=== PATIENT | female | born 1940 | race Caucasian/White ===

== ENCOUNTER 2016-10-10 20:59 | Inpatient (IN) | payer MEDICARE, OTHER ==
[~2016-10-10] VITALS: Ht 40.6 cm; Wt 90.6 kg
--- NOTE | 2016-10-11 19:36 | ER ---
ADMIT: 10/10/2016 RM/LOC: 530 [facility] MR#: [id number] [address] [facility] [place], [place] [address] JAMES TELLEZ [address] [place] [address] Emergency Room Report SEX: F AGE: 76 : 1940 DATE: 10/10/2016 CHIEF COMPLAINT: Fatigue, cough. 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 Marx with chest x-ray consistent with pneumonia and elevated white count. Transferred by Dr. Marx to [place] after discussing case with Dr. Juan prior to shift change tonight. PAST MEDICAL HISTORY: ALLERGIES: LEVAQUIN. MEDICATIONS: Please see nurse's MAR. 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 OPERATIONS: Cholecystectomy, total rhinectomy with multiple skin grafts and facial reconstruction, tonsillectomy, cataract with intraocular lens implant. SOCIAL HISTORY: , retired. Nonsmoker, nondrinker. No illicit drugs. FAMILY HISTORY: Negative per chart review. REVIEW OF SYSTEMS: A 12-point review of systems is negative for all other systems, illnesses, or operations except as outlined above. PHYSICAL EXAMINATION: VITAL SIGNS: Temp 98.6, pulse 111, respirations 14, BP 133/64, SaO2 96%. GENERAL: Nontoxic, non-diaphoretic without jaundice or icterus. HEENT: Normocephalic. Total rhinectomy noted. NECK: Supple without lymphadenopathy or thyromegaly. CHEST: Clear. Breath sounds equal. HEART: Tachycardic. Regular without murmur, gallop, or edema. ABDOMEN: Soft, obese, nontender, and nondistended without mass or megaly. Bowel sounds hypoactive. EXTREMITIES: Diffuse tender nodular lesions, hands, elbow, left lateral neck. No evidence of Homans sign or synovitis. NEURO: EOMI. PERRLA. No evidence of drift, dysarthria, or ataxia. Gait: Not assessed. Mental status: Alert, oriented, and cooperative without delusions, hallucinations, or abnormal thought content. ADMIT: 10/10/2016 RM/LOC: 530 [facility] MR#: [id number] [address] [facility] [address] [place] [id number] JAMES TELLEZ [address] [place] [address] Emergency Room Report SEX: F AGE: 76 : 1940 MEDICAL DECISION MAKING: Chest x-ray showed ill-defined left lower lobe infiltrate versus atelectasis versus effusion. CTA chest shows no evidence of pulmonary emboli. Obstructive pneumonia with possible abscess and metastatic mediastinal disease noted. EKG showed sinus tachycardia with low voltage. No prior tracing. WBC 17.6 with left shift. Hemoglobin 10.4, platelets 505, lactic 1.2, BN peptide 543, CRP 23.6, procalcitonin 0.1, D-dimer 3.16, INR of 1.11. Blood cultures pending. The patient covered with vancomycin and Zosyn. Discussed findings and disposition with Dr. Gomes, who agreed to accept. Notified Dr. Engle of consult. We will discuss with Dr. Gomes and Interventional Radiology best method for obtaining tissue. DIAGNOSES: 1. Left lung obstructive pneumonia, possible empyema versus metastatic disease chest. 2. Squamous and basal cell carcinoma of the face, status post total rhinectomy, radiation, and chemotherapy. 3. Ill-defined bleeding disorder. RECOMMENDATION: Admit inpatient telemetry for Dr. Booker Gomes and Dr. Engle. ADMISSION/DISCHARGE CONDITION: Stable. CODE STATUS: The patient is a full code. Ciro Borrego MD/ jacinto JOB #: [id number] CC: Booker Gomes MD, Attending Physician Booker Gomes MD, Family Physician MD Rambo Elam MD Jay C Anderson, MD
--- NOTE | 2016-10-12 10:02 | CO ---
ADMIT: 10/10/2016 RM/LOC: 530 [facility] MR#: [id number] [address] [facility] [place], [place] [address] JAMES TELLZE [address] [place] [address] Consultation SEX: F AGE: 76 : 1940 DATE OF CONSULTATION: 10/11/2016 ATTENDING PHYSICIAN: Booker Gomes CONSULTING PHYSICIAN: Oscar Padron MD REASON FOR CONSULTATION: History of bleeding disorder. 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 She was admitted for recurring bouts of pneumonia with concern for a postobstructive pneumonia secondary to a large left lower lobe mass seen on CT scan. Additional mass was also noted in the left upper lobe. The patient also noted, in the last few days, some occurrence of painful red lumps on her extremities around the dorsum of her hands and on the left side of her neck. She endorses shortness of breath, back pain, decreased appetite, and mild weight loss. No significant cough or fevers associated with this questionable pneumonia. No significant new changes in medications were added. The patient's bleeding history is rather interesting. She previously was seeing Dr. Cory Payan in [place] over 10 years ago. To her knowledge, he never gave her an official diagnosis but was quite interested in her case. During the time of her rhinectomy, he was very concerned and gave her several units of transfuse platelets before and after the procedure. She is unsure if she has any diagnosed von Willebrand factor deficiency. She has only a personal history of bleeding and no significant family history. She has two daughters and a son, and she had a brother, and her parents never had any bleeding problems. Both of her parents are from [place]. She has bleeding after any sort of poke or cut from a medical procedure or accidental. She has a history of gum bleeding quite easily following any sort of dental work to the point that she avoids going to the dentist these days. She had two nearly life threatening hemorrhage events earlier on and did have times of very heavy periods. She also reports easy bruising. She denies any joint bleeding or any delayed failure of hemostasis. Her scars heal normally and she does not have excessive joint flexibility. She does avoid taking all aspirin and NSAID products, and relies on Tylenol or hydrocodone for pain relief. PAST MEDICAL HISTORY: 1. History of pancreatitis. 2. History of spinal stenosis. 3. History of anemia of chronic disease. 4. History of primary hemostasis deficiency. 5. History of combined basal/squamous cell carcinoma of the nose, status post rhinectomy and radiation. 6. History of cholecystectomy. FAMILY HISTORY: As above in HPI, no significant family history of bleeding. Father does have a history of lung cancer and type 2 diabetes. ADMIT: 10/10/2016 RM/LOC: 530 [facility] MR#: [id number] [address] [facility] [address] [place] [phone] JAMES TELLEZ [facility] [address] [place] [address] Consultation SEX: F AGE: 76 : 1940 SOCIAL HISTORY: The patient does not smoke or drink. She lives near [place]. She has three children and is . HOME MEDICATIONS: 1. Gemfibrozil. 2. Magnesium oxide. 3. Calcium. 4. Aldactone. ALLERGIES: LEVAQUIN. REVIEW OF SYSTEMS: A complete review of systems was conducted and found to be negative except for what was mentioned above in the HPI. PHYSICAL EXAMINATION: VITAL SIGNS: Temp 100.8, pulse 100, respiratory rate 14, blood pressure 106/50, saturating 92% on room air. GENERAL: This is a pleasant, alert, and oriented adult female, who is a good historian. HEENT: Pupils are equal, round, and reactive. Sclerae are nonicteric. She has a bandage over her rhinectomy site, no prosthesis in place. Mouth is free from oral lesions. No bleeding or hypertrophy of the gums. SKIN: Left-sided neck, left forearm, and dorsum of hands bilaterally shows slightly raised, red, tender papules. CARDIAC: With 2/6 systolic murmur. Regular rate and rhythm. LUNGS: Clear to auscultation bilaterally with decreased respiratory sounds in the left lower lobe. Normal respiratory effort. ABDOMEN: Soft, nontender to palpation. I do not appreciate a big spleen. No hepatomegaly. Bowel sounds are positive. EXTREMITIES: No clubbing, cyanosis, or edema. NEUROLOGIC: Cranial nerves II through XII are grossly intact. PSYCH: Mood is euthymic. Affect is full and mood congruent. LABORATORY AND RADIOLOGY: Outside CT scan was visualized with significant large left lower lobe mass and much smaller left upper lobe mass detected. WBC 17.6, hemoglobin 10.4, platelets 505 with a mean platelet volume 8.4, lower limit of normal is 9.4. INR is normal at 1.11. PTT is slightly prolonged at 32.6 (upper limit of normal 31.3). IMPRESSION AND RECOMMENDATIONS: A 76-year-old female with lung mass and primary hemostasis abnormality. 1. Lung mass. The patient's mass is concerning for a lung cancer, a biopsy is necessary in order to facilitate treatment. It appears that the best approach would be a CT-guided IR biopsy of whichever lung mass is most amenable. There is significant risk for bleeding given her history, see below. 2. Primary hemostasis disorder. The patient's history and normal coags are most compatible with a primary hemostasis disorder, likely related to a ADMIT: 10/10/2016 RM/LOC: 530 [facility] MR#: [id number] [address] [facility] [address] [place], [place] [address] ROSALINDAJAMES [address] [place] [address] Consultation SEX: F AGE: 76 : 1940 rare inherited platelet deficiency and/or a von Willebrand factor deficiency of some type. I will attempt to obtain one of the medical records from Dr. Cory Payan as details in these records may prove to be invaluable. Unfortunately, my ability to accurately perform platelet function analysis here in [place] is severely limited. Tests such as the PFA-100 and traditional platelet aggregation studies need to be fresh specimens, some of which performed within 45-60 minutes. The best way to test these would be to have the patient physically located in [place] for specimen handling and the most trustworthy results. As stated, the coags are essentially normal and thus, I have low suspicion to suspect a factor deficiency. Her history is not compatible with Factor XIII deficiency. If there are enough details in Dr. Payan's labs and we can be assured of no significant von Willebrand deficiency, we may be able to proceed with pre- procedure platelet transfusions here in [place]. If not, I would recommend that the patient be transferred to [place] for better laboratory assessment of her bleeding problem. TOTAL TIME SPENT: 90 minutes. Thank you for this interesting consultation. Please call with any further questions. I will continue to follow along. Oscar Padron MD/ jacinto JOB #: [id number] CC: Booker Gomes, Attending Physician Booker Gomes, Family Physician
[2016-10-15] MEDS ORDERED: HYDROCODON-ACE1 EAC4 PO (06:28)
[2016-10-15] MEDS ORDERED: SURFAK DPS240 MG PO (06:28)
[2016-10-15] MEDS ORDERED: TYLENOL DPS325 MG PO (06:28)
[2016-10-15] MEDS ORDERED: MAALOX DPS30 ML PO (06:28)
[2016-10-15] MEDS ORDERED: ZOSYN 3.3753.375 GM IV (06:29)
[2016-10-15] MEDS ORDERED: VANCOCIN-DPS500 MG IV (06:31)
--- NOTE | 2016-10-16 07:13 | CO ---
ADMIT: 10/10/2016 RM/LOC: 530 [facility] MR#: [id number] [address] [facility] [place], [place] [address] ANGELLA TELLEZ [address] [place] [address] Consultation SEX: F AGE: 76 : 1940 DATE OF CONSULTATION: 10/11/2016 ATTENDING PHYSICIAN: Booker Gomes CONSULTING PHYSICIAN: Raymond Engle MD ADDENDUM: I have seen Angella independently, examined her, reviewed her chart, radiographic studies, laboratory studies, and discussed her with JULIAN Cole. I have reviewed his note in its entirety and I am in agreement with his assessment and plan. Given her complex nature of prior surgical complications from bleeding diathesis, I have recommended that we initially try Interventional Radiology percutaneous catheter placement for drainage of the fluid in the pleural space. Given the duration of her symptoms since July, this may or may not be successful in alleviating the fluid and allowing for adequate aeration of the left lower lobe. I did discuss with her if that were to fail from adequate treatment with IV antibiotic therapy, she may ultimately require video-assisted thoracoscopic surgery versus open thoracotomy. 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 I discussed this again with Angella and her family, and they agreed to proceed as described. Raymond Engle MD/ jacinto JOB #: [id number] CC: Booker Gomes, Attending Physician Booker Gomes, Family Physician
--- NOTE | 2016-10-17 12:50 | DS ---
ADMIT: 10/10/2016 RM/LOC: 530 [facility] MR#: [id number] [address] [place] [phone] JAMES TELLEZ [address] [place] [address] Discharge Summary SEX: F AGE: 76 : 1940 ADMISSION DATE: 10/10/2016 DISCHARGE DATE: 10/14/2016 DISCHARGE DIAGNOSES: 1. Left lung masses consistent with malignancy. 2. Left pleural effusion. 3. Left postobstructive pneumonia. 4. Anemia. 5. 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 6. History of bleeding disorder, uncharacterized, likely platelet abnormality. CONSULTATIONS: 1. General Surgery. 2. Hematology. REASON FOR ADMISSION: The patient is a very pleasant, 76-year-old female, who presented to [facility] Emergency Room as a transfer from [place] with respiratory complaints and an abnormal chest x-ray. The patient notes she had just not been feeling well ever since a "pneumonia" in July, just never seemed to get over it. She was admitted for further evaluation and treatment. For complete details, please see H and P dictated on the day of admission. HOSPITAL COURSE: At the time of admission, the patient had undergone CT scanning of the chest that did show masses on the left side of the chest, as well as what looked like a postobstructive pneumonia. She was started on antibiotics for the postobstructive pneumonia, and in visiting with the patient, did have plans to set up for Interventional Radiology biopsies of these masses. 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 The patient felt better after a couple of courses of antibiotics. We did ask Hematology to see her, and they did agree with transfer to [facility] for further evaluation, CT guided biopsy. I called [facility] and made plans for transfer, and she was transferred on 10/14. Her discharge medications are per discharge medication sheet. Her diet and activity will be as tolerated. She will have follow up with her doctors in [place] after discharge from [facility]. Booker Gomes MD/ juliana JOB #: [id number] CC: Booker Gomes MD, Attending Physician Booker Gomes MD, Family Physician Rambo Marx MD
--- NOTE | 2016-10-17 12:50 | HP ---
ADMIT: 10/10/2016 RM/LOC: 530 [facility] MR#: [id number] [address] [facility] [place], [place] [address] JAMES TELLEZ [address] [place] [address] History and Physical SEX: F AGE: 76 : 1940 DATE OF SERVICE: CHIEF COMPLAINT: Shortness of breath. HISTORY OF PRESENT ILLNESS: The patient is a very pleasant 76-year-old female, who was transferred down from [place] as a City-call patient. She has history of multicentric squamous cell/basal cell carcinoma of the nose, status post radiation and an intensive surgical treatment, who presented in clinic and then eventually in their ER in [place] with complaints of just shortness of breath and not feeling well. Said she has had a pneumonia in July and August of this year. Along with shortness of breath, she noted that she had just kind of this right-sided back pain that travelled around to her left. She has noted decreased appetite and a little bit of weight loss. She denies any bowel or bladder complaints. She denies any really productive cough at this time. Denies any issues with bowel or bladder or urinary symptoms. Has not really noticed fevers at all either, but underwent imaging that showed questionable right-sided pneumonia and she was transferred down here for further evaluation and treatment. This morning, the patient notes her breathing and her shortness of breath both felt better. Recently, she has also had some trouble with some skin rashes. She has noted some bright red painful bumps both on her dorsum of her right hand and her left forearm as well as some spots on the back of her head and neck, she is not quite sure what those can be. No new medication changes have been noted and as mentioned, she was admitted for further evaluation and treatment. PAST MEDICAL HISTORY: In visiting with the patient and on review of the chart includes: 1. Spontaneous vaginal delivery x2. 2. History of pancreatitis. 3. History of spinal stenosis. 4. History of anemia of chronic disease. 5. History of a bleeding diathesis seen previously by Dr. Cory Payan, [facility] Hematology, with the patient notes significant bleeding both with child and any surgical procedures. 6. As mentioned, history of basal cell/squamous cell carcinoma of the nose, status post operative intervention with rhinectomy and postsurgical radiation. 7. Status post cholecystectomy. FAMILY HISTORY: Father with lung cancer and type 2 diabetes. SOCIAL HISTORY: She is a nonsmoker, non drinker. Currently living in [place], [place]. She is , with children. HOME MEDICATIONS: 1. Gemfibrozil. 2. Magnesium oxide. 3. Calcium. 4. Aldactone. ADMIT: 10/10/2016 RM/LOC: 530 [facility] MR#: [id number] [address] [facility] [address] [place] [phone] JAMES TELLEZ [facility] [address] [place], [place] [id number] History and Physical SEX: F AGE: 76 : 1940 ALLERGIES: LEVAQUIN. REVIEW OF SYSTEMS: As noted above. All other systems are reviewed and negative. PHYSICAL EXAMINATION: VITAL SIGNS: 100.8, 100, 14, 106/50, 90% on room air. GENERAL: This is a female, who appears in stated age, in no apparent distress. She is alert and oriented x3. Cooperative with examiner. HEENT: Noted rhinectomy, nasal cavity defect is covered by bandages at this time. She is otherwise normocephalic and atraumatic. Mucous membranes are little dry. NECK: Supple. LUNGS: She is a little diminished on the left side but otherwise, I do not hear any wheezes, rhonchi, or rales. HEART: Regular. ABDOMEN: Soft, nontender, nondistended. Positive bowel sounds. EXTREMITIES: She has no edema. She has good pulses. NEURO: Cranial nerves are intact. No focal deficits are noted. SKIN: She has, on her left ventral forearm, approximately 2 cm, round, slightly raised, mildly erythematous subcutaneous nodule. She has another spot like that on the dorsum of her right hand and then one on the kind of the right parieto-occipital area. As mentioned, all slightly tender to the touch and all about the same size. LABORATORY AND IMAGING DATA: Lab work showed a hemoglobin 10.4, white count 17.6. Sodium 138, potassium 4.4, BUN is 15, creatinine 0.9, bicarb was 25, Mag was 2. Troponin was 0.015. CRP was 23.6. LFTs, AST, ALT, alkaline phosphatase, and bilirubin all within normal limits. Procalcitonin was 0.1. Lactic acid was 1.2. CT scan of the chest showed no PE, but there is a left- sided pulmonary mass, question postobstructive consolidation with noted mediastinal hilar lymphadenopathy. ASSESSMENT AND PLAN: 1. Chronic dyspnea. 2. Left-sided pulmonary mass with likely postobstructive pneumonia. 3. Small left-sided pleural effusion. 4. Suspicious subcutaneous nodules. 5. Anemia. 6. Leukocytosis. 7. History of facial and nasal squamous/basal cell carcinoma, status post intervention and radiation treatment. 8. History of significant bleeding diathesis involving surgical operations and child . At this point, I really do believe this is probably a left-sided malignancy with postobstructive pneumonia and probably a ADMIT: 10/10/2016 RM/LOC: 530 [facility] MR#: [id number] [address] [facility] [address] [place], [place] [address] ROSALINDAJAMES [address] [place] [address] History and Physical SEX: F AGE: 76 : 1940 malignant pleural effusion. Right now, certainly with her history, it could be a metastatic basilar or squamous cell or primary lung. With these subcutaneous nodules, we would wonder if this could possibly be a metastatic focus of cancer or possibly erythema nodosum that can be associated with certain malignancies. At this time, we will treat her postobstructive pneumonia. She is on room air right now. We need tissue at some point with her very significant bleeding diathesis. We will grab coags on her and have Hematology see her. Certainly, we need to make sure this all gets settled down before she undergoes either biopsy of these skin lesions or especially with CT-guided biopsy coming up. This was discussed with the patient and her daughter at length, and we will follow along closely. Booker Gomes MD/ jacinto JOB #: [id number] CC: Booker Gomes, Attending Physician Booker Gomes, Family Physician
--- NOTE | 2016-10-22 10:10 | CO ---
ADMIT: 10/10/2016 RM/LOC: 530 [facility] MR#: [id number] [address] [facility] [place], [place] [phone] ANGELLA TELLEZ [address] [place] [address] Consultation SEX: F AGE: 76 : 1940 DATE OF CONSULTATION: 10/11/2016 ATTENDING PHYSICIAN: Booker Gomes CONSULTING PHYSICIAN: Raymond Engle MD REASON FOR CONSULTATION: Lethargy. HISTORY OF PRESENT ILLNESS: Angella is a very pleasant 76-year-old female, who states that she was diagnosed with pneumonia back at the end of July, beginning of August of this year. Since then, she has not been able to improve. She has had progressive lethargy and just overall has not felt good. Because of these symptoms, she decided to seek medical treatment in the clinic in [place] where plain films revealed suggestive findings of persistent pneumonia in her lungs, so then, she was transferred to our facility for management. Though there is not official read CTA of her chest did reveal a large collection in her left lower lung from CT concerning for empyema. Currently, the patient is nauseous, but denies any cough, sputum, or hemoptysis. She did have a run of pleurisy several weeks back but this has resolved. She further denies any fever, chills, or night sweats. 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 Because of this, she tends to run thin and has issues with any surgical procedures. She has had surgery done on her nose that required apparently 6 units of platelets prior and 6 units of platelets afterwards and she did just fine. She did have her gallbladder taken out where at that time blood was "spurting" from the incisions made from that procedure. 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 PAST SURGICAL HISTORY: 1. Numerous radiation treatments for acne. 2. Laparoscopic cholecystectomy. ALLERGIES: THE PATIENT IS ALLERGIC TO LEVAQUIN AND ESTROGEN. MEDICATIONS: Well documented in chart. FAMILY HISTORY: Noncontributory. SOCIAL HISTORY: The patient denies any tobacco, alcohol, or illicit drug use. REVIEW OF SYSTEMS: CONSTITUTIONAL: The patient denies any fever, chills, or night sweats. The rest of comprehensive 10-point review of systems was performed and all other systems are negative. PHYSICAL EXAMINATION: GENERAL: The patient is in no acute distress. She is alert and oriented. HEENT: Head is normocephalic and atraumatic. EOMs are intact. Conjunctivae ADMIT: 10/10/2016 RM/LOC: 530 [facility] MR#: [id number] 26[address] [facility] [address] [place] [id number] ANGELLA TELLEZ [facility] [address] [place] [id number] Consultation SEX: F AGE: 76 : 1940 free of icterus, erythema, or pallor. Pinnae, free of deformities. Dressing placed over nose, looks like nose has been resected. NECK: Supple. No tracheal deviation. LUNGS: Normal respiratory effort. Decreased breath sounds and rales in left lower lung field. HEART: Regular rate and rhythm. Distal pulses intact. No murmurs noted. ABDOMEN: Soft, nondistended, and nontender. NEURO: Grossly intact. SKIN: Numerous raised erythematous nodules on the patient's upper extremities. DIAGNOSTIC IMAGING: Please see HPI. ASSESSMENT: Radiographic evidence of a fluid collection in left lower lung concerning for pneumonia and empyema. PLAN: As of right now, we will avoid surgery with the patient given the history of this particular bleeding disorder. In the meantime, we will see if IR can get in a pleural drain catheter to clear up this fluid collection. I discussed this with the patient which she is in agreement of this plan, had all her questions answered and would like to proceed. JULIAN Cole / Raymond Engle MD / jacinto JOB #: [id number] CC: Booker Gomes, Attending Physician Booker Gomes, Family Physician
[2016-11-26] MEDS ORDERED: NILSTAT SUSP DPS PO (11:10)
[2016-11-26] MEDS ORDERED: MAG-OX400 MG PO (11:10)
[2016-11-26] MEDS ORDERED: DILAUDID2 MG PO ×2 (11:10→11:12)
[2016-11-26] MEDS ORDERED: CORDARONE DPS200 MG PO (11:10)
[2016-11-26] MEDS ORDERED: CARDIZEM CD DP120 MG PO (11:10)
[2016-11-26] MEDS ORDERED: AMBIEN DPS5 MG PO (11:11)
[2016-11-26] MEDS ORDERED: BENADRYL25 MG PO (11:11)
[2016-11-26] MEDS ORDERED: REGLAN DPS5 MG PO (11:11)
[2016-11-26] MEDS ORDERED: COLACE-DPS100 MG PO (11:11)
[2016-11-26] MEDS ORDERED: SLOW-MAG71.5 MG PO (11:11)
[2016-11-26] MEDS ORDERED: MAALOX DPS30 ML PO (11:12)
[2016-11-26] MEDS ORDERED: MOI-STIR120 ML PO (11:12)
[2016-11-26] MEDS ORDERED: ROXANOL 20MG20 MG/ML PO (11:12)
[2016-11-26] MEDS ORDERED: LASIX DPS80 MG PO (11:13)
[2016-11-26] MEDS ORDERED: SENOKOT S1 TAB PO (11:13)
[2016-11-26] MEDS ORDERED: DIFLUCAN DPS150 MG PO (11:13)
[2016-11-26] MEDS ORDERED: DURAGESIC DPS100 MCG TD (11:14)
== END 2016-10-14 10:58 | disposition short-term general hospital (02) | DRG 180 ==
LOC: ER 20:59 → 5MS 23:00
PROVIDERS: ADMIT Internal Medicine
DX: C34.92 Malignant neoplasm of unspecified part of left bronchus or lung (principal); J18.9 Pneumonia, unspecified organism; D68.9 Coagulation defect, unspecified; D63.8 Anemia in other chronic diseases classified elsewhere; I10 Essential (primary) hypertension; E78.5 Hyperlipidemia, unspecified; R91.8 Other nonspecific abnormal finding of lung field; M48.00 Spinal stenosis, site unspecified; R22.9 Localized swelling, mass and lump, unspecified; D72.829 Elevated white blood cell count, unspecified; Z85.89 Personal history of malignant neoplasm of other organs and systems

== ENCOUNTER 2016-10-27 11:46 | Inpatient (IN) | payer MEDICARE, OTHER ==
[~2016-10-27] VITALS: Ht 154.9 cm; Wt 87.0 kg
--- NOTE | ~2016-10-27 | ECH ---
Transthoracic Echocardiography Report (TTE) Demographics Patient Name JAMES TELLEZ Date of Study 10/28/2016 Patient Number [id number] Visit Number [id number] Date of 1940 Room Number 313 Accession Number [id number] Gender Female Age 76 year(s) Referring Elvia Foreman MD Personnel Associate Carlie Melendez Physician Parrish Landa RDCS, MD Physician Interpreting Vera Jimenez Network Development Coordinator Physician MD Supervising Ordering Physician Parrish Landa MD/SAMP Nurse Stress Vulcanizing Press Operator Conclusions Summary Technically adequate exam. The estimated left ventricular ejection fraction is 60%. There is trivial aortic regurgitation by color Doppler. Mild tricuspid regurgitation by color Doppler. There is mild pulmonary hypertension. The pulmonary pressure (RVSP) is 40 mmHg. Small circumferential pericardial effusion. Procedure Type of Study TTE procedure:Echo Complete SF. Procedure Date Date: 10/28/2016 Start: 10:50 AM Technical Quality: Adequate visualization Indications:Atrial fibrillation and Hypertension. Appropriate Use Criteria: 9 Height: 61 inches Weight: 203 pounds BSA: 1.9 m Rhythm: Within normal limits HR: 78 bpm BP: 95/44 mmHg M-Mode/2D Measurements LV Diastolic Dimension: 3.98 cm LV Systolic Dimension: 2.94 cm LV Septum Diastolic: 0.73 cm LV PW Diastolic: 0.72 cm AO Root Dimension: 2.93 cm Cardiac Output: 4.42 l/min LA Dimension: 2.88 cm Cardiac Index: 2.33 l/min*m RV Diastolic Dimension: 2.65 cm LA volume index: 16 ml/m Post Pericard Effusion: 0.3 cm LVOT: 1.94 cm LVOT VTI: 19.19 cm RV Base: 2.8 cm LV Stroke volume: 56.7 ml RV Mid: 1.9 cm LV Stroke volume index: 29.84 ml/m TAPSE: 1.8 cm TDI-S': 12 cm/s Doppler Measurements AV Peak Velocity: 2 m/s MV Peak E-Wave: 0.99 m/s AV Peak Gradient: 16 mmHg MV Peak A-Wave: 0.71 m/s AV Mean Gradient: 9.46 mmHg MV E/A Ratio: 1.39 LVOT Peak Velocity: 1.1 m/s MV P1/2t: 49.3 msec AV Area (Continuity):1.65 cm AV P1/2t: 446.2 msec MV Deceleration Time: 165.8 msec TR Velocity:3.06 m/s MV Area (PHT): 4.47 cm TR Gradient:37.45 mmHg PV Peak Velocity: 0.91 m/s Estimated RAP:3 mmHg PV Peak Gradient: 3.31 mmHg Estimated RVSP: 40 mmHg Estimated PASP: 40.45 mmHg E' Septal Velocity: 0.1 m/s A' Septal Velocity: 0.12 m/s E' Lateral Velocity: 0.12 m/s A' Lateral Velocity: 0.15 m/s RA Area: 10.35 cm Findings Left Ventricle Normal left ventricle size and function. Diastolic assessment reveals normal relaxation. Right Ventricle Normal right ventricle structure and function. Left Atrium Normal left atrial size. Right Atrium Normal right atrial size. Mitral Valve Normal mitral valve structure and function. No mitral regurgitation by color Doppler. Aortic Valve The aortic valve is mildly sclerotic. There is trivial aortic regurgitation by color Doppler. Tricuspid Valve Normal tricuspid valve structure and function. Mild tricuspid regurgitation by color Doppler. There is mild pulmonary hypertension. The pulmonary pressure (RVSP) is 40 mmHg. Pulmonic Valve The pulmonic valve is not well visualized. Pericardial Effusion Trivial circumferential pericardial effusion. Miscellaneous Visualized portions of the aortic root and ascending aorta appear normal in size. Pleural Effusion No evidence of pleural effusion. Contractility Score LV regional wall motion:(0-Non visualized 1-Normal 2-Hypokinesis 3-Akinesis 4-Dyskinesis 5-Aneurysm) Signature
--- NOTE | ~2016-10-27 | WND ---
ADMIT: 10/27/2016 RM/LOC: 406 [facility] MR#: [id number] 26[address] [facility] [address] [place] [phone] JAMES TELLEZ [address] [place] [address] Wound Care Clinic SEX: F AGE: 76 : 1940 DATE OF VISIT: 11/13/2016 TIME IN: 1310 hours. TIME OUT: 1320 hours. REASON FOR VISIT: Evaluation and treatment of right buttock ulcerations. Request for wound care from Dr. Senior. HISTORY OF PRESENT ILLNESS: This is a 76-year-old female, who was admitted to [facility] on 10/27/2016 with a history of basal and squamous carcinoma of the nose, status post radiation and surgical treatment. She also has a diagnosis of non small-cell lung cancer, anemia, and pancreatitis. She has a bleeding diathesis, paroxysmal atrial fibrillation, and spinal stenosis. She was seen by Wound Care for evaluation of her buttocks. Initially, she had perirectal irritation that has since cleared, but she did develop a pressure ulceration on her right buttock that is being treated with low air loss Sensi-Care and position changes. Wound Care returns today for further evaluations. REVIEW OF SYSTEMS: She is examined in her hospital room where she is initially sleeping. Her daughter is at the bedside and provides review of systems. She states her mother's nausea has been under control with current medications. Her mother has a very decreased appetite, only taking sips and not able to tolerate her protein drinks. She has had some abdominal discomfort. She does have pain in her back related to her spinal stenosis and patient awakens and states she also has pain in her bottom. No recent fever, chills, chest pain, or cough. PHYSICAL EXAMINATION: VITAL SIGNS: Temperature 97.5, 64, 16, blood pressure 101/47, O2 sats with oxygen 96%. Focused exam to sacral, coccyx, buttocks area shows that the perirectal area is now healed. On her right buttock is an ulceration that today has a yellowish base and measures 2 x 1.2 cm, depth of 0.2 cm. Adjacent to this is this new ulceration that measures 0.3 x 1.2 with a depth of 0.2 cm. This has a red moist wound base. There is no surrounding induration. Blanchable erythema noted. ADMIT: 10/27/2016 RM/LOC: 406 [facility] MR#: [id number] [address] [phone] JAMES TELLEZ [address] [place] [address] Wound Care Clinic SEX: F AGE: 76 : 1940 ASSESSMENT: 1. Stage III pressure ulceration, right buttock. 2. Stage II pressure ulceration, right buttock. TREATMENT PLAN: We will continue with Sensi-Care and pressure relief. She is on a low air loss mattress. She has a risk for future breakdown because of her complicated diagnosis and poor oral intake. Requested that staff be sure to turn her every 2 hours especially at night with a pillow under hips with a 30-degree tilt to offload pressure on her buttock. Thank you for this referral and Wound will continue to follow while she is inpatient. Any Christensen APRN/ jacinto JOB #: [id number] CC: Marsha Senior, Attending Physician Rambo Marx, Family Physician
--- NOTE | ~2016-10-27 | WND ---
ADMIT: 10/27/2016 RM/LOC: 406 [facility] MR#: [id number] 26[address] [facility] [address] [place] [phone] JAMES TELLEZ [address] [place] [address] Wound Care Clinic SEX: F AGE: 76 : 1940 DATE OF VISIT: 11/04/2016 TIME IN: 10:05. TIME OUT: 10:15. REASON FOR VISIT: Evaluation and treatment of ulcerations on buttocks. This is a request for wound care from Dr. Senior. HISTORY OF PRESENT ILLNESS: This is a 76-year-old female, who was admitted to [facility] on 10/27/2016. She has a history of squamous and basal cell carcinoma of the nose status post radiation and surgical treatment. She was also noted to have severe postobstructive pneumonia. She was treated from 10/10 to 10/14 at [facility] and transferred to the [facility] for biopsy. She has a history of bleeding diathesis and had been transferred to the [facility] for treatment and to undergo lung biopsy with Hematology on board. She had gained over 20 pounds in what appeared to be fluid weight. Her appetite was decreased. She had severe pain in her arms and legs. She was diagnosed with atrial fibrillation with rapid ventricular response. Recent post obstructive pneumonia. New non- small cell lung carcinoma. Hypercalcemia. Severe pain. Weakness with edema. Basal/squamous cell carcinoma of her nose and sinus. She has been followed by Dr. Ralph from Infectious Disease for erythematous rash on chest and back. 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 Dr. Padron is following her for non-small cell lung carcinoma and bleeding tendency. Dr. Mejía is following her for acute kidney injury. Wound Care was consulted for evaluation of her bottom. She was actually seen by Isaura Glynn, certified wound care nurse, on 10/28/2016, at which time, she just had irritated skin and Sensi-Care was ordered along with low air loss mattress, chair cushion, and heels floated. PAST MEDICAL HISTORY: Recent diagnosis of non-small cell lung cancer. Anemia. Pancreatitis. Bleeding diathesis. Spinal stenosis. Basal cell carcinoma of the nose status post rhinectomy and radiation. Paroxysmal atrial fibrillation. History of pancreatitis. History of chronic disease. Spinal stenosis. Status post cholecystectomy. FAMILY HISTORY: Father with lung cancer and type 2 diabetes. SOCIAL HISTORY: She is nonsmoker and nondrinker, lives in [place], [place], and has adult children. ALLERGIES: Estrogens, oxycodone, and levofloxacin. CURRENT MEDICATIONS: Per the MAR. Please see the MAR for further details. 1. Cordarone. 2. Dilaudid. 3. Lopressor. 4. Nilstat. ADMIT: 10/27/2016 RM/LOC: 406 [facility] MR#: [id number] [address] [place] [phone] JAMES TELLEZ [address] [place] [address] Wound Care Clinic SEX: F AGE: 76 : 1940 5. Reglan. 6. Senokot. 7. Slow magnesium. 8. Zaroxolyn. 9. Sodium chloride. 10.Xopenex. 11.Diltiazem. 12.Lasix. 13.Merrem. 14.Mycamine. 15.Zyvox. PRN medications: 1. Ambien. 2. Ativan. 3. Benadryl. 4. Colace. 5. Dilaudid. 6. Maalox. 7. Tylenol. 8. Zofran. 9. DuoNeb. 10.Sodium chloride. 11.Xopenex. 12.Tylenol suppository. 13.Nitrostat. 14.Benadryl cream. 15.Benadryl. 16.Dilaudid. 17.Lopressor. 18.Narcan. REVIEW OF SYSTEMS: She is examined in her hospital bed where she is awake, alert, and oriented x3. She is on a low air loss mattress. She denies any recent fever or chills. She did have a rough night. She denies any cough, cold, or chest pain. Her appetite is decreased. No current nausea or vomiting. Decreased appetite. She does rate her pain as 7 in her abdomen as well as 7 on her bottom. FOCUSED EXAMINATION: VITAL SIGNS: Temperature 97.9, pulse 75, respirations 20, blood pressure 135/65, and O2 sats on oxygen is 97%. Focused exam of sacral, coccyx, and buttock area shows that the previous ADMIT: 10/27/2016 RM/LOC: 406 [facility] MR#: [id number] [address] [place] [phone] JAMES TELLEZ [address] [place] [address] Wound Care Clinic SEX: F AGE: 76 : 1940 denuded areas now healed. There is a thin epithelium covered with thick tissue. However, she does have an ulceration on the right buttock that measures 1 cm x 1.5 cm, depth of 0.1 cm. The base is pink. It looks slightly macerated. ASSESSMENT: Stage II pressure ulceration, right buttock. TREATMENT PLAN: We will continue with the current treatment plan of low air loss mattress, repositioning every 2 hours, Sensi-Care 4 times a day and as needed, and chair air cushion. Thank you for this referral and allowing us to participate in her care. Any Christensen APRN/ jacinto JOB #: [id number] CC: Marsha Senior, Attending Physician Rambo Marx, Family Physician
[~2016-10-27 11:46] MED LIST: HYDROCODON-ACE1 EAC4 PO; MAALOX DPS30 ML PO; SURFAK DPS240 MG PO; TYLENOL DPS325 MG PO; VANCOCIN-DPS500 MG IV; ZOSYN 3.3753.375 GM IV
--- NOTE | 2016-10-28 09:49 | HP ---
ADMIT: 10/27/2016 RM/LOC: 313 [facility] MR#: [id number] 2620 [facility] [address] [place] [phone] JAMES TELLEZ [address] [place] [address] History and Physical SEX: F AGE: 76 : 1940 DATE OF SERVICE: CHIEF COMPLAINT: Atrial fibrillation with rapid ventricular response. HISTORY OF PRESENT ILLNESS: Ms. Tellez is a very pleasant, 76-year-old female. She unfortunately has a past medical history that is quite complex here recently. She has a history of squamous basal cell carcinoma of the nose, status post radiation and surgical treatment, who had been noted in September to present to [place] with a severe post obstructive pneumonia. She was treated from 10/10 to 10/14 when she was transferred up to the [facility] for a biopsy. She previously had carried the diagnosis of a bleeding diathesis and therefore had been transferred up to the [facility] to be treated for her to undergo a lung biopsy with Hematology on board. The patient apparently was transferred up to the [facility] and underwent her biopsy. Per the family report, since being admitted to the hospital on 10/10, she has gained over 20 pounds in what appears to be fluid. She has not been eating much. It has been noted that she has had severe pain of her arms and legs. She has been limited in her range of motion and has been having trouble with confusion, hallucinations thought secondary to the pain medicine. She has also developed a rash that is kind of red and itchy across her chest. The patient reports that she is in severe pain, nothing really seems to help with her pain. She reports that overall, she has not been feeling well. It is noted that then today she came in for an MRI of her brain, and when she laid down she developed shortness of breath and chest pain. They did an EKG that showed that she was in atrial fibrillation with RVR with a heart rate up in the 200s. She was then transferred to the ER and is now being admitted for further evaluation and treatment. Of note, on her evaluation, her white count was 34,000 and a procalcitonin was elevated. PAST MEDICAL HISTORY: Significant for: 1. History of her bleeding diastasis manifested as significant bleeding from childbirth and surgical procedures. 2. History of pancreatitis. 3. Spinal stenosis. 4. History of anemia of chronic disease. 5. Basal cell squamous cell carcinoma of the nose, status post operative intervention with rhinectomy and postsurgical radiation. 6. Status post cholecystectomy. 7. Recent diagnosis of non-small cell lung cancer. FAMILY HISTORY: Father with lung cancer and type 2 diabetes. SOCIAL HISTORY: She is a nonsmoker and nondrinker. She lives in [place], [place]. She is with children. MEDICATIONS: Her home medications currently are: 1. Spironolactone 50 mg p.o. daily. 2. Magnesium oxide 400 mg p.o. daily. 3. Hydromorphone 2 mg two tabs p.o. q.4 to 6 hours p.r.n. ADMIT: 10/27/2016 RM/LOC: 313 [facility] MR#: [id number] [address] [place] [phone] JO TELLEZFELICITY Dailey [address] [place] [address] History and Physical SEX: F AGE: 76 : 1940 4. Iron 65 mg two tabs p.o. daily. 5. Tylenol. 6. Lorazepam 0.5 p.o. q.4 hours p.r.n. 7. Zofran. 8. Fentanyl 25 mcg patch which she is using too. 9. Furosemide 40 mg p.o. b.i.d. 10.KCl 20 mEq p.o. b.i.d. 11.Senna Lax two tabs p.o. b.i.d. 12.Gemfibrozil 600 mg p.o. b.i.d. ALLERGIES: ARE LEVAQUIN, ESTROGEN, AND OXYCODONE. REVIEW OF SYSTEMS: Obtained and was otherwise negative. PHYSICAL EXAMINATION: GENERAL: The patient has a bandage across her nose. HEENT: Otherwise, her pupils are round and reactive. Oropharynx is very dry mucous membranes. NECK: Supple. HEART: A very tachycardic rate with an irregularly irregular rhythm. LUNGS: Have diminished breath sounds bilaterally. CHEST: Noted to have a pustular-appearing rash across her upper chest. EXTREMITIES: Noted to be edematous. She has 4/5 muscle strength in her distal upper extremities with some noted proximal muscle weakness in her upper extremities. Her lower extremities are noted to be 3+ edematous also. ASSESSMENT AND PLAN: 1. Atrial fibrillation with rapid ventricular response. At this time, Cardiology has been consulted for help with management. It does not appear that she would be an anticoagulation candidate. 2. Rash. I spoke with Oncology. The concern is that this maybe a paraneoplastic-type syndrome. However, could be a cellulitis also. We ADMIT: 10/27/2016 RM/LOC: 313 [facility] MR#: [id number] [address] [place] [phone] JAMES TELLEZ [address] [place] [address] History and Physical SEX: F AGE: 76 : 1940 will go ahead and treat her at this time with some IV antibiotics with her high white count and high procalcitonin level. 3. Recent post obstructive pneumonia. Chest x-ray with no new findings of new postobstructive pneumonia. 4. New non-small cell lung carcinoma. 5. Hypercalcemia. 6. Severe pain. We will go ahead and put her on a Dilaudid TWISTING FRAME CHANGER. Did discuss this with the family. 7. Weakness. We will plan to get an MRI of her brain as well as her cervical spine. 8. Edema. We will put her on a low-sodium diet. 9. Basal/squamous cell carcinoma. I spent 60 minutes in the admission and evaluation of this patient. Marsha Senior MD/ jacinto JOB #: [id number] CC: Marsha Senior, Attending Physician Rambo Marx, Family Physician
--- NOTE | 2016-10-30 10:32 | CO ---
ADMIT: 10/27/2016 RM/LOC: 313 [facility] MR#: [id number] [address] [address] JAMES TELLEZ [address] [place] [address] Consultation SEX: F AGE: 76 : 1940 DATE OF CONSULTATION: 10/28/2016 ATTENDING PHYSICIAN: Marsha Senior CONSULTING PHYSICIAN: Padma Mejía MD REASON FOR CONSULTATION: Acute kidney injury. HISTORY OF PRESENT ILLNESS: The patient is a pleasant 76-year-old female, who has had a rough last month or so. She was recently admitted to [facility] with what appeared to be a postobstructive pneumonia. Further workup lead to a diagnosis of non-small cell lung cancer. She was in the process of being evaluated by Oncology here and getting a treatment plan set up and had presented for an MRI/imaging studies. During those, she was noted to be hypotensive and in atrial fibrillation with rapid ventricular response. She was admitted through the emergency room to the ICU. She was hypotensive yesterday with systolics in the 80s to 90s. Her creatinine yesterday was 1.2, and it is up to 1.5 this morning. She has been nonoliguric with a urine output of around 50 mL over the last 12 hours. She is also volume expanded and has impressive edema. She was trying spironolactone as an outpatient, but that was not helping her much. Her appetite has been poor. She reports some subjective orthopnea as well. As far as her atrial fibrillation is concerned, she was treated with amiodarone and was switched to oral amiodarone this morning. Her heart rate is in the 90s to 100s currently. She is constipated. She has a Rodríguez catheter in situ, which is somewhat of her discomfort to her. She has a rash across her chest that is itchy. She feels weak and drained out. REVIEW OF SYSTEMS: A complete review of systems is negative in detail except as mentioned in history of present illness above. PAST MEDICAL HISTORY: 1. Recent diagnosis of non-small cell lung cancer. 2. Anemia. 3. Pancreatitis. 4. Bleeding diastasis. 5. Spinal stenosis. 6. Basal cell carcinoma of the nose status post rhinectomy and radiation. ALLERGIES: ESTROGENS, LEVOFLOXACIN, AND OXYCODONE. MEDICATIONS: Reviewed in the chart. FAMILY HISTORY: Diabetes runs in her family, and her father had lung cancer too. SOCIAL HISTORY: She lives in [place], [place]. She lives with her . Lifelong nonsmoker. No alcohol use recently. ADMIT: 10/27/2016 RM/LOC: 313 [facility] MR#: [id number] [address] [id number] JO TELLEZFELICITY [facility] [address] [place] [address] Consultation SEX: F AGE: 76 : 1940 PHYSICAL EXAMINATION: VITAL SIGNS: Temperature 98.4 Fahrenheit, pulse 83, blood pressure 114/76. GENERAL: She is lying in bed and appears weak. HEAD: Nontraumatic and normocephalic. She has pale conjunctiva. She is status post rhinectomy and has a bandage across her nose. NECK: Supple without any JVD. CHEST: Decreased breath sounds bilaterally. CVS: Irregularly irregular. No rubs, murmurs, or gallops. ABDOMEN: Soft, obese. EXTREMITIES: Bilateral upper extremities as well as lower extremity edema. SKIN: She has an erythematous rash in her upper chest kind of over the sternal area. NEUROLOGIC: She is alert, awake, oriented x3, is able to move all her extremities. PSYCHIATRIC: Affect and memory is within normal limits. LABORATORY DATA: Reviewed. Her BMP this morning showed a sodium of 132, potassium 4.8, creatinine 1.5, BUN was 29, and calcium 8.5. White count was 43.2, her hemoglobin was 9.7. Urinalysis yesterday was without any hematuria, proteinuria, or leukocyte esterase. She had hyaline casts in her urine yesterday. Her echocardiogram showed an LVEF of 60%. She had trivial aortic regurgitation with mild tricuspid regurgitation and mild pulmonary hypertension. Her right ventricle systolic pressure was 40 mmHg. She did have a circumferential pericardial effusion. ADMIT: 10/27/2016 RM/LOC: 313 [facility] MR#: [id number] [address] [address] JMAES TELLEZ [facility] [address] [place] [address] Consultation SEX: F AGE: 76 : 1940 ASSESSMENT AND PLAN: Acute kidney injury - this is most likely ischemic acute tubular necrosis. I will check urine studies to evaluate further. I suggest maintaining hemodynamics for the time being and avoiding nephrotoxins such as NSAIDs, IV contrast, or Fleet Enema. She is volume expanded on exam, and I discussed a trial of diuretics in the next several hours especially if she remains hemodynamically stable. In case of severe decline in her kidney function and inability to tolerate her electrolytes, her worsening of volume status, I did discuss the possibility of renal replacement therapy and she is agreeable to that if needed. Thank you for this consultation. Please do not hesitate to contact with any questions. Padma Mejía MD/ jacinto JOB #: [id number] CC: Marsha Senior, Attending Physician Rambo Marx, Family Physician
--- NOTE | 2016-11-01 08:26 | CO ---
ADMIT: 10/27/2016 RM/LOC: 406 [facility] MR#: [id number] 2620 [facility] [address] [place] [phone] JAMES TELLEZ [address] [place] [address] Consultation SEX: F AGE: 76 : 1940 DATE OF CONSULTATION: 10/31/2016 ATTENDING PHYSICIAN: Marsha Senior CONSULTING PHYSICIAN: Erasmo Mayes MD HISTORY OF PRESENT ILLNESS: Ms. Tellez is a very pleasant, unfortunate, 76- year-old, white female, with fairly complex medical history, including previous history of nasal cancer with rhinectomy several years ago, followed by radiation therapy. She also has coagulopathy, with probable platelet dysfunction versus fibrinogen abnormality. She recently had been hospitalized with probable left-sided pneumonia. She was treated with IV antibiotics, and sent home. Subsequently, another x-ray and then CT scan showed possible pneumonia, but may be even a mass-like illness. Eventually, she went to the [facility] acute hospital and was hospitalized there for about 6 days and underwent a CT-guided needle biopsy I believe on 10/17/2016. This showed non-small cell lung cancer, though it was not able to be further typed. She also had an allergic reaction to penicillin and reaction to pain medications. She was admitted to the hospital on 10/27/2016, after going for an MRI with sedation, she developed new onset of atrial fibrillation with rapid ventricular rate. She was given combination of amiodarone and metoprolol, had spontaneous conversion. She has also been running fevers and been having diffuse nonspecific body aches and pains. She was admitted for further care and evaluation and started on IV antibiotics. CT scan of her chest was obtained on October 28. This showed left upper lobe pleural-based mass, and significant amount of pleural thickening and irregularity that was new compared to previous scan with minimal amount of pleural fluid. She was going to attempt to have thoracentesis performed, but there was no significant fluid and subsequently, the thoracentesis was canceled. She was seen for evaluation. She is not really having any pain currently, but a week ago prior to a biopsy done after biopsy had severe left- sided chest pain and pleurisy. She was placed on oral prednisone for this, and seemingly it was better. However, she does not like the side effects of the prednisone, which for her include anxiety and tremulousness. Subsequently, had stopped the steroids. She is now also hypoxic, requiring supplemental oxygen. Because of her previous rhinectomy, is wearing oxygen via nasal cannula that she is placing in her nose. She has been having problems with dry mouth and sore throat. PAST MEDICAL HISTORY: Significant for some type of bleeding/coagulopathy with either platelet dysfunction or fibrinogen abnormality. She has previous history of squamous cell cancer of the nose, and has undergone previous ADMIT: 10/27/2016 RM/LOC: 406 [facility] MR#: [id number] [address] [place] [phone] JAMES TELLEZ [address] [place] [address] Consultation SEX: F AGE: 76 : 1940 rhinectomy with postoperative radiation. She has history of anemia of chronic disease, history of pancreatitis, she is status post cholecystectomy. She also recently was diagnosed with poorly differentiated non-small cell lung cancer. Recent history of acute atrial fibrillation with rapid ventricular rate. Also, recent left-sided pneumonia. She has listed medical allergy of Levaquin, estrogen, and oxycodone. I believe she also recently had allergic reaction to what sounds like penicillin antibiotic. MEDICATIONS: List of home medications were reviewed in the electronic medical records, include: 1. Spironolactone 50 mg daily. 2. Magnesium oxide 400 mg daily. 3. Hydromorphone (Dilaudid) p.r.n. 4. She is also on iron. 5. Lorazepam p.r.n. 6. Fentanyl patch 25 mcg every 72 hours. 7. Furosemide 40 mg b.i.d. 8. Potassium chloride 20 mEq b.i.d. 9. Gemfibrozil. FAMILY AND SOCIAL HISTORY: She is a never smoker. She is , lives with her in [place]. She has adult children, two of her daughters are present and provide much of the detailed information. REVIEW OF SYSTEMS: As above. Complete organ system reviewed and significant positives and negatives discussed above. In addition, she has had significant fluid retention and weight gain. She has had very poor oral intake. Recently, had the drug reaction to the penicillin with diffuse skin rash. She was taken off the antibiotic, the rash got better, and then was placed back on the antibiotic and had recurrence of the rash. This causes significant urticaria. She has also been fairly weak. In the hospital, has been getting some IV Lasix and has diuresed significant amount of fluid. PHYSICAL EXAMINATION: VITAL SIGNS: She was currently afebrile with temperature of 97.1. Blood pressure 119/50 with a pulse of 84. Oxygen saturation 91% on supplemental oxygen via nasal cannula through her mouth. Weight today was 221 pounds. Was noted weight on October 27 was recorded at 203 pounds. GENERAL: This is elderly, frail, sickly-appearing white female, in moderate amount of respiratory distress. HEENT: Shows head to be normocephalic, atraumatic. Pupils equal and reactive. She has had previous rhinectomy, and her nose is dressed with combination of dressing and gauze. She has significant perioral edema. Mouth ADMIT: 10/27/2016 RM/LOC: 406 [facility] MR#: [id number] 2620 [facility] [address] [place] [phone] JAMES TELLEZ [address] [place] [address] Consultation SEX: F AGE: 76 : 1940 is dry. She has nasal cannula in her mouth to provide supplemental oxygen. NECK: Supple without adenopathy. CHEST: Moderate kyphosis. She has markedly diminished breath sounds in the left lung. No pleural rub was noted. Right lung was clear. There is some central rhonchi noted in the left lung, and she has very weak and ineffectual cough. HEART: Regular, no murmur. ABDOMEN: Obese, soft, nondistended, and nontender without organomegaly or masses. EXTREMITIES: Diffuse almost anasarca-like edema. No focal neurologic deficits are noted. DIAGNOSTIC STUDIES: Review of labs and x-rays as well as echocardiogram and CT scan were performed. Of significant note is her echocardiogram showing normal ejection fraction with 60%. She has elevated right ventricular systolic pressure of 40 and circumferential pericardial effusion. No evidence of tamponade physiology. CT scan of her chest was reviewed, and shows the left lung mass with very significant left pleural thickening. There is also enlarged right adrenal gland. ASSESSMENT AND PLAN: She has acute hypoxic respiratory failure, likely combination of her pneumonia, her left lung mass, and this new progressive pleural thickening or pleural involvement. The pleural thickening on the CT scan has the appearance of pleural involvement with cancer, although certainly one possibility because of her bleeding disorder would be that she had some bleeding into the pleural space, and this could be localized. It does not really have the appearance of an empyema per se. She has been seen by multiple consultants, and we will continue to follow. We will continue to provide supplemental oxygen. I am going to try and change her to humidified mask or even trach collar if she can tolerate that to provide adequate oxygenation and humidification. She has newly diagnosed non-small cell lung cancer, which was described as poorly differentiated. Most likely, has adrenal involvement, and highly suspicious advanced lung cancer. However, since she is a never smoker, this may show that she has either an EGFR or LK mutation, and testing for that is still pending. She has significant bleeding disorder, which may be platelet abnormality or abnormal fibrinogen, and she previously has been treated with platelet transfusion as well as cryoprecipitate. She was recently hospitalized with pneumonia, still running fevers and is being seen by Dr. Ralph, started on antibiotics, which we will continue. ADMIT: 10/27/2016 RM/LOC: 406 [facility] MR#: [id number] [address] [phone] JAMES TELLEZ [address] [place] [address] Consultation SEX: F AGE: 76 : 1940 She has atrial fibrillation, rapid ventricular rate, was placed on amiodarone and metoprolol, spontaneous conversion. She has volume overload and acute kidney injury, getting diuresed with Lasix and some improvement. She has significant diffuse body pain and had bad reaction to the pain medications with over-sedation and even hallucination, this is being cautiously managed and monitored. We will follow along with you here and further recommendations following assessment of her response to treatments and therapies. Erasmo Mayes MD/ jacinto JOB #: [id number] CC: Marsha Senior, Attending Physician Rambo Marx, Family Physician
--- NOTE | 2016-11-03 11:20 | CO ---
ADMIT: 10/27/2016 RM/LOC: 406 [facility] MR#: [id number] 2620 [facility] [address] [place] [phone] JAMES TELLEZ [address] [place] [address] Consultation SEX: F AGE: 76 : 1940 DATE OF CONSULTATION: 10/30/2016 ATTENDING PHYSICIAN: Marsha Senior CONSULTING PHYSICIAN: Aggie Anthony APRN TIME IN: 1100 hours. TIME OUT: 1145 hours. REASON FOR CONSULTATION: Supportive Care consultation was requested by Dr. Senior for discussion of goals for care. HISTORY OF PRESENT ILLNESS: Mrs. Tellez is a delightful 76-year-old female with a remote history of squamous cell carcinoma of the nose, status post rhinectomy and radiation therapy. She was admitted in September of 2016 with postobstructive pneumonia. She was eventually sent to [facility] for a lung biopsy due to the fact that she has an underlying bleeding disorder and had high risk for bleeding with biopsy. Since being discharged from [facility] last month, she has gained about 20 pounds in water weight and has also had increasing pain over her arms and legs. She was brought to [facility] on October 27 for MRI; however, began developing increasing shortness of breath and chest pain. EKG revealed atrial fibrillation with RVR. Cardiology is following her. Additionally, labs reveal an elevated white blood cell count as well as elevated procalcitonin. CT of the abdomen and pelvis was done that showed an abdominal abscess. There was attempts to place a drain for the abscess in Interventional Radiology, however, they could not get any fluid during this procedure. CT of the chest showed left lower lobe pneumonia as well as a left lower lobe partially necrotic mass and a left upper lobe soft tissue mass. Infectious Disease is following her as she is growing yeast in her urine. Renal has also been following her for acute kidney injury. Due to her multiple complexities, Supportive Care consultation was requested to discuss goals for care. In terms of advanced directives, the patient is a full code. She does not have any advanced directives that she has completed including a living will or durable [id number] for healthcare. The patient's , Wes Tellez, whose phone #[phone] and #[phone], is the patient's next of kin medical decision maker. Symptomatically, the patient's main complaint is pain. She reports the pain is present over her bilateral arms and also her legs. She states that IV Dilaudid is helping her. She is weak and debilitated. She has dyspnea with exertion. Her appetite has been poor and she reports that she has been becoming weaker just prior to her hospital stay. PAST MEDICAL HISTORY: 1. Bleeding disorder. 2. Pancreatitis. ADMIT: 10/27/2016 RM/LOC: 406 [facility] MR#: [id number] [address] [address] JAMES TELLEZ [address] [place] [address] Consultation SEX: F AGE: 76 : 1940 3. Spinal stenosis. 4. History of anemia of chronic disease. 5. Squamous cell carcinoma of the nose, status postoperative intervention with rhinectomy and radiation. 6. Cholecystectomy. 7. Recent diagnosis of non-small cell lung cancer. ALLERGIES: THE PATIENT IS ALLERGIC TO ESTROGENS WELL LEVAQUIN AND OXYCODONE. CURRENT MEDICATIONS: Please see the patient's MAR for specific routes and dosages. Her current medications are as follows: 1. Cordarone. 2. Mycamine. 3. Merrem. 4. Maalox. 5. Colace. 6. Flexeril. 7. DuoNeb. 8. Zyvox. 9. Senokot. 10.Diltiazem. 11.Narcan. 12.Dilaudid. 13.Zofran. 14.Ativan. 15.Benadryl. 16.Tylenol. 17.Magnesium oxide. 18.Nitrostat. SOCIAL HISTORY: She is . She has children. She is from [place], [place]. She does not use alcohol or tobacco. FAMILY HISTORY: Significant for lung cancer and type 2 diabetes in her dad. FUNCTIONAL REVIEW: Prior to her hospital stay, she was at home. It sounds like she had been getting weaker and was requiring some assistance with ADLs. Her palliative performance scale prior to admission was around 50%. Currently, she is in bed. Her intake is reduced. She is very tired. Her current palliative performance score is a 30% to 40%. REVIEW OF SYSTEMS: A 10-point review of systems was completed and other than those pertinent positives and negatives mentioned in the HPI, it is negative. PHYSICAL EXAMINATION: GENERAL: The patient is examined in the bed. She is in no acute distress. VITAL SIGNS: Temperature 97.6, pulse 91, respirations 18, blood pressure ADMIT: 10/27/2016 RM/LOC: 406 [facility] MR#: [id number] [address] [place] [id number] JAMES TELLEZ [address] [place] [address] Consultation SEX: F AGE: 76 : 1940 111/53, oxygen 93% on 3 L per nasal cannula. HEENT: Head is normocephalic. Pupils are equal, round, and reactive with diameter of 3 mm bilaterally. Oral mucosa pink and moist with fair dentition. She does have a bandage located over the area where her nose was. NECK: Supple. RESPIRATORY: Respirations are equal and nonlabored at rest. Lungs are diminished throughout. CARDIOVASCULAR: Irregularly irregular without murmurs, rubs, or gallops. Has 2+ to 3+ edema over the bilateral upper extremities and 2+ edema over the bilateral lower extremities. GASTROINTESTINAL: Soft, nontender. Bowel sounds are positive. MUSCULOSKELETAL: Generalized weakness. INTEGUMENTARY: Skin turgor is fair. NEUROLOGIC: Fatigued, but oriented x3. She will follow commands. PSYCHIATRIC: Calm and cooperative. No agitation or delirium noted. DIAGNOSTIC DATA: Sodium 130, potassium 4.6, BUN 34, creatinine 1.3, total protein 6.1, albumin 1.6. WBCs 36.6, hemoglobin 8.2, hematocrit 27.3, platelets are 738. IMPRESSION: 1. Debility. 2. Fatigue. 3. Malaise. 4. Anasarca. 5. Severe protein-calorie malnutrition. 6. Anorexia. 7. Bilateral arm pain. 8. Newly diagnosed non-small cell lung cancer. 9. Left lower lobe pneumonia. 10.Abdominal abscess. 11.Rash. 12.Atrial fibrillation with rapid ventricular rate. 13.Bleeding diathesis. 14.History of squamous cell cancer of the nose. 15.Palliative care. 16.The patient is a full code. TREATMENT PLAN: 1. I was able to meet with the patient, her , and daughter at the bedside. We reviewed her overall status and goals for the time ahead. She is very fatigued, but able to participate in medical decision making. In terms of goals, the patient is hopeful to get through her current acute issues and pursue chemotherapy for her cancer. At this point, she desires full aggressive care. She does agree to ongoing discussions in the time ahead pending her status. 2. We reviewed code status including the burden versus benefit of full code versus do not resuscitate/do not intubate status. At this time, the ADMIT: 10/27/2016 RM/LOC: 406 [facility] MR#: [id number] [address] [place] [address] [place] [phone] JO TELLEZFELICITY Dailey [address] [place] [id number] Consultation SEX: F AGE: 76 : 1940 patient directs a full code status and her family is fully supportive of this. 3. In terms of her pain, Dr. Senior is adjusting her pain medications. I do question if trying low-dose Decadron may be beneficial for her in terms of her pain and it does seem to have a neuropathic component to it. I will defer pain management to her primary care provider. 4. In terms of medical decision making, she does not have any advanced directives; however, her is next of kin. I did offer assistance with health care [id number] paperwork in the future should she wish to pursue this before leaving the hospital. 5. We will continue to follow along in the care of this patient and assist with goals as needed. We would like to thank Dr. Senior for the invitation to participate in this patient's care. Total consultation time was 45 minutes from 1100 hours to 1145 hours with 20 minutes from 1110 hours to 1130 hours spent [id number] with the patient discussing goals and providing counseling and support. We will follow along. BREANNA Burton JOB #: [id number] CC: Marsha Senior, Attending Physician Rambo Marx, Family Physician
--- NOTE | 2016-11-03 11:51 | CO ---
ADMIT: 10/27/2016 RM/LOC: 313 [facility] MR#: [id number] 2620 [facility] [address] [place] [phone] JAMES TELLEZ [address] [place] [address] Consultation SEX: F AGE: 76 : 1940 DATE OF CONSULTATION: 10/28/2016 ATTENDING PHYSICIAN: Marsha Senior CONSULTING PHYSICIAN: Oscar Padron MD REASON FOR CONSULTATION: Lung cancer. HISTORY OF PRESENT ILLNESS: This is a pleasant 76-year-old, female patient of [facility], newly established, with a new diagnosis of poorly differentiated non- small cell cancer on biopsy 10/16/2016. She has a remote past medical history of a nasal cancer which was removed with rhinectomy, followed by radiation therapy. She also has a significant past medical history of a poorly defined bleeding tendency related to possibly platelet function versus fibrinogen abnormalities. Yesterday, she was admitted during an MRI with sedation with the new development of atrial fibrillation with rapid ventricular response. She has since converted to sinus rhythm with metoprolol and has started on amiodarone. Additional outpatient problems currently being addressed include poor pain control which is worse across her shoulder blades and down both of her arms. She had been placed on Dilaudid 4 mg at home which seemed to be causing her too much drowsiness, whereas 2 mg seemed to be inappropriate for pain control. Additionally, she had not been responding to 40 mg of oral Lasix given twice daily and is struggling with excessive fluid gain. She has decreasing appetite with very poor nutritional intake as well. The workup in this hospitalization has again raised the high suspicion of an infectious process in her lung and she is being treated with broad-spectrum antibiotics here in the ICU. The patient has returned from her imaging this afternoon and does ask some good questions showing some moderate glaziness in her eyes but appears to be in no acute distress. We have not yet started treating her cancer as we are waiting for her to improve in other medical parameters as well as waiting special pathologic testing on her biopsy specimen to return. PAST MEDICAL HISTORY: 1. Bleeding diathesis, poorly defined. 2. History of pancreatitis. 3. Spinal stenosis. 4. History of anemia chronic disease. 5. 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 6. Status post cholecystectomy with bleeding complications. 7. Recently diagnosed non-small cell lung cancer. FAMILY HISTORY: Significant for father with lung cancer and type 2 diabetes. SOCIAL HISTORY: The patient is a nonsmoker and nondrinker. She lives in [place], [place]. She has several children with one daughter present at this time. REVIEW OF SYSTEMS: A complete review of systems was conducted and found to be ADMIT: 10/27/2016 RM/LOC: 313 [facility] MR#: [id number] [address] [address] [address]AMES TELLEZ [address] [place] [address] Consultation SEX: F AGE: 76 : 1940 negative except for what is mentioned above in HPI. MEDICATIONS: Medications inpatient include: 1. Benadryl. 2. Magnesium oxide. 3. Tylenol. 4. Meropenem. 5. Vancomycin. 6. Amiodarone. 7. Hydromorphone drip. ALLERGIES: LEVAQUIN, ESTROGEN, OXYCODONE. PHYSICAL EXAMINATION: VITAL SIGNS: Temperature 98.0, pulse 67, respiratory rate 10, blood pressure 107/51, 96% on room air. GENERAL: This is a slightly sedated adult female who does ask mostly appropriate questions. She appears to be resting comfortably in bed. Nasal bandage over removed rhinectomy site. HEENT: Pupils are equal, round, slightly small, reactive to light. Mouth is moist with no oral lesions. SKIN: Areas of erythematous skin along the torso with erythematous papules on bilateral extremities, tender to the touch. NECK: Trachea is midline. No cervical lymphadenopathy. No supraclavicular lymphadenopathy. HEART: Regular rate and rhythm with no murmurs, rubs, or gallops. LUNGS: Decreased breath sounds in the left lower base. No significant wheezing or crackles elsewhere. Normal respiratory effort. ABDOMEN: Soft, nontender to palpation. Bowel sounds are positive. No hepatosplenomegaly appreciated. EXTREMITIES: There is 3+ bilateral edema in lower and upper extremities. No clubbing. No cyanosis. They are warm. NEUROLOGIC: Cranial nerves II through XII are grossly intact. No focal deficits. MUSCULOSKELETAL: No inflamed or swollen joints. Range of motion is unimpaired. LABORATORY DATA: WBC 43.2, hemoglobin 9.7, platelets 658. Sodium 130, potassium 4.9, bicarb 25, BUN 25, creatinine 1.2, calcium 8.4, albumin 1.9, procalcitonin 27.22. 10/28/2016, echocardiogram shows EF of 60%. 10/28/2016, CT chest, abdomen, and pelvis, left lower lobe mass with necrotic center, not significantly changed from 3 weeks prior. Interstitial opacities in the left lung consistent with inflammatory infectious process. 2.6 cm upper lobe left pleural-based soft tissue mass present. Prevascular and AP window, large lymph nodes unchanged, enlarged. 1.1 cm nodule in the left major fissure, new since prior study. Right adrenal gland nodule is increased ADMIT: 10/27/2016 RM/LOC: 313 [facility] MR#: [id number] [address] [address] JAMES TELLEZ [address] [place] [address] Consultation SEX: F AGE: 76 : 1940 in size from 2.1 cm to 2.4 cm. 4.8 cm loculated fluid collection anterior to the bowel concerning for diverticulitis or development of abscess. No free air in the abdomen. IMPRESSION AND RECOMMENDATION: A 76-year-old female with non-small cell lung cancer. 1. Non-small cell lung cancer, poorly differentiated. At this time, with increasing size and adrenal nodule, I do suspect stage IV lung cancer. We have not yet begun therapy as we are waiting for some improvement in other medical conditions and the return of additional pathological testing. Awaiting EGFR, ROS1, ALK, and PD-L1 testing results to determine first-line eligibility for targeted or immune therapy. We are holding off on placement of a port at this time due to her bleeding tendencies and anticipate to use a peripheral vein for her treatment. Additional staging including a PET scan can only be performed as an outpatient and thus will be readdressed after hospitalization. I would like brain imaging yet including potentially a third attempt at obtaining an MRI, although a CT brain with contrast may be adequate to reasonably rule out brain metastasis. 2. Bleeding tendency. The patient's bleeding tendency is poorly defined with abnormal platelet function and abnormal fibrinogen. Any procedure should be prophylaxed with platelet transfusion as well as cryoprecipitate and potentially FFP. No pharmaceutical thromboprophylaxis should be administered due to her bleeding tendencies. 3. Atrial fibrillation with RVR. This appears to be resolved and is well managed. 4. Pneumonia. The patient seems to be able to benefit from additional IV antibiotic treatment given her significantly elevated procalcitonin. Awaiting blood cultures at this time. 5. Pain control. The patient is having a difficult time walking with fine balance between adequate pain control and over-sedation. Perhaps reattempting at oxycodone due to this suspicious skin rash allergy may be more appropriate. Also, it may be more effective to avoid the fentanyl patch as this may have been playing additional role in sedation. Current Dilaudid pump is being used to help titrate oral dose. 6. Fluid overload. The patient's blood pressures are not allowing ADMIT: 10/27/2016 RM/LOC: 313 [facility] MR#: [id number] [address] [place], [place] [address] JAMES TELLEZ [address] [place] [address] Consultation SEX: F AGE: 76 : 1940 aggressive diuresis at this time. Hopefully, this will change management lead the next couple of days and we will be able to effectively remove excess fluid burden. I discussed the general course of the hospitalization expected and anticipated goals to me prior to discharge. At this time, we are not expecting inpatient chemotherapy initiation, but this may change if more tolerable targeted therapies become available. We will continue to follow along. Thank you for this consultation. TOTAL TIME SPENT: 60 minutes. Oscar Padron MD/ jacinto JOB #: [id number] CC: Marsha Senior, Attending Physician Rambo Marx, Family Physician
--- NOTE | 2016-11-05 11:11 | CO ---
ADMIT: 10/27/2016 RM/LOC: 313 [facility] MR#: [id number] 2620 [facility] [address] [place] [phone] JAMES TELLEZ [address] [place] [address] Consultation SEX: F AGE: 76 : 1940 DATE OF CONSULTATION: 10/28/2016 ATTENDING PHYSICIAN: Marsha Senior CONSULTING PHYSICIAN: Earnestine Ralph MD REASON FOR CONSULT: Leukocytosis. Thank you, Dr. Senior for the consult and involving me in this patient's care. HISTORY OF PRESENT ILLNESS: Ms. 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 She presented to [facility] in September and was noted to have severe postobstructive pneumonia. She has history of bleeding diathesis and hence was transferred to [facility] for a lung biopsy which came out to be non-small cell lung cancer. Yesterday, she came in for an MRI of the brain and developed atrial fibrillation with rapid ventricular response, and hence was admitted to ICU on amiodarone drip. At present, she complains of severe pain in both her arms and legs and across her back. She also has increased erythematous rash over her chest and back, which has been present since around 2 months associated with pruritus. She is being followed by Dr. 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 Her white count was noted to be 34,000, increased to 43,000 today with ANC of 31.4 and eosinophils 0.7. She denies any fever, diarrhea, or any other complaints other than mentioned as above. She was discharged on Augmentin 875 mg twice daily from [facility] for pneumonia. PAST MEDICAL HISTORY: 1. Bleeding diathesis. 2. History of pancreatitis. 3. Anemia of chronic disease. 4. Spinal stenosis. 5. Basal cell cancer of the nose, status post surgery and radiation. 6. Status post cholecystectomy. 7. New diagnosis of non-small cell lung cancer. FAMILY HISTORY: Significant for lung cancer in the father, and leukemia in her mother. SOCIAL HISTORY: She lives in [place] with her . Has pet cats and dogs. Denies any smoking, alcohol, or recreational drug use. ALLERGIES: 1. LEVOFLOXACIN, WHICH CAUSES SEVERE PAIN AND CONFUSION. 2. ESTROGEN. 3. OXYCODONE. CURRENT MEDICATIONS: Include: 1. Magnesium oxide. ADMIT: 10/27/2016 RM/LOC: 313 [facility] MR#: [id number] [address] [address] JAMES TELLEZ [address] [place] [address] Consultation SEX: F AGE: 76 : 1940 2. Senokot. 3. Diltiazem. 4. Meropenem 500 mg every 8 hours. 5. Vancomycin 1 g once daily. REVIEW OF SYSTEMS: Ten-point review of systems negative except as mentioned in HPI. PHYSICAL EXAMINATION: VITAL SIGNS: Current temperature is 99.1, T-max is 100.2, heart rate 73, respirations 16, blood pressure 95/44, 90% on room air. GENERAL: No acute distress. HEENT: Head is normocephalic and atraumatic. Extraocular movements intact. There is mild lag in the right upward gaze. She has a bandage across her nose and is refusing to show the nasal defect at this time. Oral mucosa moist. NECK: Supple. LYMPH: No palpable anterior/posterior cervical or supraclavicular lymphadenopathy. CHEST: Bibasilar crackles. HEART: S1 and S2 heard. Tachycardia. SKIN: There is erythematous rash on her upper chest and back. PSYCH: Normal affect. Memory intact. NEUROLOGIC: Awake, alert, and oriented x3. LABORATORY AND X-RAY DATA: Blood cultures are no growth to date. Procalcitonin level is 27.22. Lactic acid is 2.3. CMP shows creatinine of 1, low albumin of 1.9. Chest x-ray shows left lower lobe opacities and effusion. ASSESSMENT AND PLAN: 1. Leukocytosis, likely secondary to left lower lobe questionable empyema ADMIT: 10/27/2016 RM/LOC: 313 [facility] MR#: [id number] [address] [address] JAMES TELLEZ [facility] [address] [place] [address] Consultation SEX: F AGE: 76 : 1940 versus a leukemoid reaction. At this time, I will continue her on meropenem and vancomycin for now. Blood cultures are pending. She denies any diarrhea, however, she could very well have Clostridium difficile colitis as well. I will check a peripheral smear. We will get a CT of the chest, abdomen, and pelvis without contrast. 2. Non-small cell lung cancer, Oncology on board. 3. 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 We will monitor closely. 4. Bleeding diathesis. 5. Atrial fibrillation with rapid ventricular response. Rate controlled on amiodarone. Thank you for the consult and I will continue to follow the patient. Earnestine Ralph MD/ jacinto JOB #: [id number] CC: Marsha Senior, Attending Physician Rambo Marx, Family Physician
--- NOTE | 2016-11-17 14:23 | CO ---
ADMIT: 10/27/2016 RM/LOC: 313 [facility] MR#: [id number] [address] [address] ANGELLA TELLEZ [address] [place] [address] Consultation SEX: F AGE: 76 : 1940 DATE OF CONSULTATION: 10/27/2016 ATTENDING PHYSICIAN: Marsha Senior CONSULTING PHYSICIAN: Eyad Gamez MD REASON FOR CONSULT: Atrial fibrillation with rapid ventricular response. HISTORY OF PRESENT ILLNESS: Angella is a 76-year-old lady with no prior cardiac history. Apparently, she does have a history of hypertension. Her history is significant for previous squamous or basal cell carcinoma of her nose, status post rhinectomy and post surgical radiation according to the patient over 10 years ago. She was introduced to the [facility] last month when she came in on October 10 with increasing weakness, fatigue, cough, and was found to have a postobstructive pneumonia. Because of an underlying bleeding diathesis, apparently she was sent to the [facility] for [facility]-guided biopsy of the lung. This has resulted in a new diagnosis of non- small cell cancer of the lung on the left. Since arriving home about a week ago from [place], and that hospitalization, she has been struggling with ongoing weakness of her extremities with diffuse pain mostly of her extremities. Over the past couple of days, she has also had a sharp chest pain when she takes in a deep breath. She denies any palpitations. She has gained about 20 pounds and has diffuse edema. She came for an MRI of the brain today, I believe, for staging purposes. When she was hooked up to the monitor, her heart rate was approaching 200 and she was in atrial fibrillation. This is a questionable new diagnosis for her. She did say while she was at the [facility], she had an episode where nurses came into her room because of change in her heart rhythm, but I do not have those records. She is now on IV Cardizem and her heart rate is mostly in the 130s. Her blood pressure is stable at 116/70. We also gave her a dose of IV digoxin while in the emergency room, but she remains in atrial fibrillation. PAST MEDICAL HISTORY: ALLERGIES: SHE IS ALLERGIC TO OXYCODONE, SEVERAL ESTROGEN, LEVAQUIN. MEDICATIONS: She is on: 1. Spironolactone 50 mg daily. 2. Mag oxide 400 daily. 3. Hydromorphone 2 mg two tabs every 4-6 hours as needed. 4. Iron 65 two tabs daily. 5. Tylenol daily. 6. Lorazepam 0.5 every 4 hours as needed. 7. Zofran every 6 hours as needed. 8. Fentanyl 25 mg patch every 72 hours. 9. Lasix 20 or 40 mg twice daily. ADMIT: 10/27/2016 RM/LOC: 313 [facility] MR#: [id number] [address] [place] [phone] [place] [address] Consultation SEX: F AGE: 76 : 1940 10.Potassium 20 mEq twice daily. 11.Senna Lax two tablets daily. 12.Gemfibrozil 600 b.i.d. ILLNESSES: Include a history of bleeding diathesis. She is status post rhinectomy for cancer of her nose, recent diagnosis of non-small cell lung cancer on the left. She has a history of hypertension and recent post obstructive pneumonia. She has a history of spinal stenosis, anemia of chronic disease, and pancreatitis. PAST SURGICAL HISTORY: Positive for her rhinectomy and a prior cholecystectomy. FAMILY HISTORY: Father of lung cancer. Her mother had leukemia. There is no history of premature coronary artery disease. SOCIAL HISTORY: She lives in [place] with her . They have three children. She never smoked. She does not use alcohol. No history of illicit drug use. REVIEW OF SYSTEMS: A full 12-point review of systems was reviewed and noncontributory other than that mentioned in the HPI. PHYSICAL EXAMINATION: VITAL SIGNS: Her blood pressure is currently 120 with a blood pressure 116/72. GENERAL: She is pale. She is alert. She is quiet but in no acute obvious distress. EYES: Sclerae clear. No xanthelasmas. ENT: There is a bandage over her nose and her prior surgical site. Oral mucosa is pink and moist. No jugular venous distention or carotid bruits. CHEST: Markedly diminished in the left compared to the right lung. No crackles, wheezes, or rhonchi noted. HEART: Irregularly irregular and tachycardic, but I do not appreciate any significant murmurs, rubs, or gallops. ABDOMEN: Mildly obese. Soft and nontender. MUSCULOSKELETAL: Gait is normal. EXTREMITIES: There is soft edema extending up to her thighs but also over her upper extremities. SKIN: There is a mild erythematous rash noted mostly over her chest with small papules. There is some also at the hairline on her neck and extending into her upper back. PSYCHIATRIC: Alert and oriented. Mood and affect are appropriate. IMAGING DATA: A 12-lead EKG shows atrial fibrillation with rapid ventricular response but no ischemic EKG changes. IMPRESSION: 1. Atrial fibrillation with rapid ventricular response. Question if this is ADMIT: 10/27/2016 RM/LOC: 313 [facility] MR#: [id number] [address] [place] [id number] ANGELLA TELLEZ [address] [place] [address] Consultation SEX: F AGE: 76 : 1940 truly new onset. 2. Recent diagnosis of non-small cell lung cancer and postobstructive pneumonia. 3. Volume expansion. 4. History of squamous cell basal cell carcinoma of the nose. 5. Erythematous rash of the thorax. 6. Underlying bleeding diathesis. RECOMMENDATIONS: I am not convinced her atrial fibrillation is actually new based on her history at the [facility] when she was told she had a fast heart rate. She is asymptomatic, and I think it was an incidental finding today when she came in for her MRI. Regardless, I suspect it is new since her recent diagnosis at the end of September. It is clear to me that it is going to be difficult to rate control. She has received IV digoxin and she is on 20 mg of Cardizem and her heart rate remains in the 120s. Therefore, we are going to start IV amiodarone for rate control at this point. I did talk to her primary and they are not comfortable starting anticoagulation with her multiple diagnoses and a history of bleeding diathesis. We will clarify with Oncology. For further evaluation, we will do an echo tomorrow. She is having some chest discomfort, but it does not sound anginal to me. It is more pleuritic in nature and consistent with her recent pneumonia and left lung carcinoma. The treatment strategy for her atrial fibrillation at this point is rate control, but I think we need amiodarone to help with optimal rate. 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 Eyad Gamez MD/ jacinto JOB #: [id number] CC: Marsha Senior, Attending Physician Rambo Marx, Family Physician
[2016-11-26] MEDS ORDERED: CORDARONE DPS200 MG PO (11:10)
[2016-11-26] MEDS ORDERED: CARDIZEM CD DP120 MG PO (11:10)
[2016-11-26] MEDS ORDERED: MAG-OX400 MG PO (11:10)
[2016-11-26] MEDS ORDERED: DILAUDID2 MG PO ×2 (11:10→11:12)
[2016-11-26] MEDS ORDERED: NILSTAT SUSP DPS PO (11:10)
[2016-11-26] MEDS ORDERED: REGLAN DPS5 MG PO (11:11)
[2016-11-26] MEDS ORDERED: BENADRYL25 MG PO (11:11)
[2016-11-26] MEDS ORDERED: COLACE-DPS100 MG PO (11:11)
[2016-11-26] MEDS ORDERED: AMBIEN DPS5 MG PO (11:11)
[2016-11-26] MEDS ORDERED: SLOW-MAG71.5 MG PO (11:11)
[2016-11-26] MEDS ORDERED: ROXANOL 20MG20 MG/ML PO (11:12)
[2016-11-26] MEDS ORDERED: MAALOX DPS30 ML PO (11:12)
[2016-11-26] MEDS ORDERED: MOI-STIR120 ML PO (11:12)
[2016-11-26] MEDS ORDERED: LASIX DPS80 MG PO (11:13)
[2016-11-26] MEDS ORDERED: SENOKOT S1 TAB PO (11:13)
[2016-11-26] MEDS ORDERED: DIFLUCAN DPS150 MG PO (11:13)
[2016-11-26] MEDS ORDERED: DURAGESIC DPS100 MCG TD (11:14)
--- NOTE | 2016-12-18 12:08 | DS ---
ADMIT: 10/27/2016 RM/LOC: 406 [facility] MR#: [id number] 2620 [facility] [address] [place] [phone] JAMES TELLEZ [address] [place] [address] Discharge Summary SEX: F AGE: 76 : 1940 ADMISSION DATE: 10/27/2016 DISCHARGE DATE: 11/24/2016 DISCHARGE DIAGNOSES: 1. Atrial fibrillation with rapid ventricular response. 2. Left lower lobe pneumonia. 3. Anterior chest wall rash. 4. Non-small cell lung carcinoma. 5. Bleeding diathesis. 6. 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 7. Anasarca. 8. Low back pain. 9. Elevated white blood cell count. 10.Hypotension. 11.Abdominal abscess. 12.Acute kidney injury. 13.Hyponatremia. 14.Fever. 15.Weakness. 16.Hypoxemia. 17.Insomnia. 18.Delirium. 19.Confusion. 20.Hypokalemia. 21.Anemia. 22.Urinary tract infection. 23.Letitia yeast infection in the bladder. 24.Anxiety. HOSPITAL COURSE: The patient was admitted after going into atrial fibrillation with rapid ventricular response when she laid down for an MRI of the brain. She was initially placed in ICU with a cardiology consult. It took about 24 hours and then her atrial fibrillation was converted to normal sinus rhythm. She was noted to have a markedly elevated white count which was new from her recent discharge from the [facility]. Therefore, she was evaluated for infection. It was felt she likely had a postobstructive left lower lobe pneumonia and was treated appropriately for this. She was also found to have an abscess in her abdomen or what was thought to be an abscess in her abdomen. She continued to have paroxysmal atrial fibrillation throughout her hospital stay. Was not placed on any blood thinners due to her bleeding diathesis. Cardiology did intermittently intervene. In regards to her infectious processes, she did have a left lower lobe pneumonia. Completed a course of treatment for this as well as did go on to develop a urinary tract infection as well as yeast infection in her bladder. She was also treated for both of these. In regards to her non-small cell lung carcinoma, she had recently been ADMIT: 10/27/2016 RM/LOC: 406 [facility] MR#: [id number] [address] [phone] JAMES TELLEZ [address] [place] [address] Discharge Summary SEX: F AGE: 76 : 1940 diagnosed with this. She did undergo a biopsy of her lung which with thought would be an abscess drainage but there was no abscess present. Approximately a week later it looked like there was a new abscess developing as well as a spot in her abdomen. These were both attempted to be drained. However once again, the lung abscess was not an abscess and in the abdomen she had a biopsy which was proven out to be metastatic non-small cell lung cancer. The tissue was sent off for PDF1 expression and it did come back positive. Therefore, she did received her first dose of KEYTRUDA while in the hospital. In regards to her electrolytes, she did become hyponatremic intermittently during her hospital stay. This was managed by Dr. Mejía. At that time, she was given hypertonic saline. She was also noted to have intermittent acute kidney injury due to prerenal failure. With regards to the patient's mental status, she definitely had more confusion when she became hyponatremic. As soon as her sodium would improve she would get better. However, she did continue to suffer with a lot of anxiety, pain and insomnia, which were managed. With regards to her edema, she was given lots of IV Lasix which did seem to help, although she had poor p.o. intake and still continued to have generalized anasarca. She was also noted to be relatively hypoxemic during her hospital stay and did have require oxygen. Due to her rhinectomy, she had to have the oxygen in her mouth at most times. She had a palliative care consult and was made DNR/DNI. However, did want full treatment due to this option of KEYTRUDA. She was noted to have a pretty marked rash against across her chest. The feeling was this was likely paraneoplastic and therefore we really did not do a whole lot with it. We decided not to biopsy it due to her bleeding diathesis. Any time she got a biopsy of any kind she had to have FFP as well as platelets given. During her hospital stay, she had oncology on board, Nephrology, Cardiology and Infectious Disease. Otherwise, the patient was relatively stable and felt stable to be transferred to [facility] for ongoing care. I did speak with Dr. Marx who accepted her transfer. The patient was hypokalemic but she did not like to take potassium. We would give her intermittent doses of IV potassium. Her magnesium was also low and she needed to have some iron replaced x2. It was noted after her infusion of KEYTRUDA that she did develop a fever for approximately 24 hours. DISCHARGE MEDICATIONS: 1. Cardizem 120 mg p.o. daily. 2. Amiodarone 200 mg p.o. daily. 3. Dilaudid 2 mg p.o. q.6 hours. 4. Lopressor 50 mg p.o. b.i.d. ADMIT: 10/27/2016 RM/LOC: 406 [facility] MR#: [id number] [address] [place] [phone] JAMES TELLEZ Asim [address] [place] [address] Discharge Summary SEX: F AGE: 76 : 1940 5. Maalox b.i.d. 6. Mag oxide 400 mg p.o. b.i.d. 7. Movantik 25 mg p.o. daily. 8. Nystatin p.o. t.i.d. 9. Reglan 5 mg p.o. q.i.d. 10.Slow-Mag p.o. t.i.d. 11.Duragesic patch 25 mcg. 12.Ambien p.r.n. 13.Lasix 80 mg p.o. b.i.d. 14.Metolazone 2.5 p.o. 30 minutes prior to dose of Lasix. 15.Levaquin 50 mg p.o. daily x5 days. FOLLOWUP: Follow up with Dr. Mejía, Dr. Tsai, Dr. Marx and Dr. Padron. Marsha Senior MD/ vdg JOB #: [id number] CC: Marsha Senior MD, Attending Physician Rambo Marx MD, Family Physician
--- NOTE | 2016-12-18 14:48 | ER ---
ADMIT: 10/27/2016 RM/LOC: 406 [facility] MR#: [id number] [address] [facility] [address] [place] [phone] JAMES TELLEZ [address] [place] [address] Emergency Room Report SEX: F AGE: 76 : 1940 DATE: 10/27/2016 ADDENDUM: See T-sheet for complete H and P. HISTORY OF PRESENT ILLNESS: The patient is a 76-year-old female, who came down from [facility] where she was getting worked up for possible mets when she was placed on the monitor and found to be tachycardic. On presentation to the ER, she is anxious and uncomfortable and feels like she is short of breath and her heart is racing. PHYSICAL EXAMINATION: VITAL SIGNS: She had a blood pressure of 124/64, heart rate of 180, respirations 20, temp 96.7, sats 96%. GENERAL: She was anxious but alert and oriented. She does have a large bandage to her nose as she has had a previous rhinectomy for cancer. HEART: Tachycardic. LUNGS: Clear to auscultation. ABDOMEN: Obese, soft, nontender. SKIN: Warm and dry. EXTREMITIES: She did have some bilateral pedal edema in the lower extremities but good tachycardic pulses in all 4 extremities. No skin lesions or rashes or any signs of trauma. EMERGENCY DEPARTMENT COURSE: Chest x-ray was done in the ER which showed some bibasilar consolidation. I contacted Dr. Senior, and patient will be admitted for new onset atrial fibrillation, non-small cell lung cancer, chronic pain, left basal consolidation. Dev Souza MD/ jacinto JOB #: [id number] CC: Marsha Senior MD, Attending Physician Rambo Marx MD, Family Physician
== END 2016-11-24 14:24 | DRG 987 ==
LOC: RAD.S 11:46 → EDSTATUS 13:00 → 3ICU 16:45 → 4PCU 16:45 → 3ICU 10-30 10:14 → 4PCU 10-30 17:38
PROVIDERS: ADMIT Internal Medicine
PROC: 0W9J3ZX Drainage of Pelvic Cavity, Percutaneous Approach, Diagnostic (ICD-10-PCS; principal; 2016-10-29)
PROC: 30233R1 Transfusion of Nonautologous Platelets into Peripheral Vein, Percutaneous Approach (ICD-10-PCS; 2016-10-31)
PROC: 0JB83ZX Excision of Abdomen Subcutaneous Tissue and Fascia, Percutaneous Approach, Diagnostic (ICD-10-PCS; 2016-11-04)
PROC: 0W9B3ZX Drainage of Left Pleural Cavity, Percutaneous Approach, Diagnostic (ICD-10-PCS; 2016-11-04)
DX: I48.0 Paroxysmal atrial fibrillation (principal); N17.0 Acute kidney failure with tubular necrosis; J96.01 Acute respiratory failure with hypoxia; E43 Unspecified severe protein-calorie malnutrition; J85.1 Abscess of lung with pneumonia; C78.6 Secondary malignant neoplasm of retroperitoneum and peritoneum; L89.312 Pressure ulcer of right buttock, stage 2; E87.3 Alkalosis; L89.313 Pressure ulcer of right buttock, stage 3; E83.42 Hypomagnesemia; C34.92 Malignant neoplasm of unspecified part of left bronchus or lung; B37.49 Other urogenital candidiasis; E87.1 Hypo-osmolality and hyponatremia; N39.0 Urinary tract infection, site not specified; I95.9 Hypotension, unspecified; E87.70 Fluid overload, unspecified; E83.52 Hypercalcemia; R21 Rash and other nonspecific skin eruption; D69.9 Hemorrhagic condition, unspecified; K59.00 Constipation, unspecified; E87.6 Hypokalemia; D63.8 Anemia in other chronic diseases classified elsewhere; M48.00 Spinal stenosis, site unspecified; R52 Pain, unspecified; D72.829 Elevated white blood cell count, unspecified; G47.00 Insomnia, unspecified; F41.9 Anxiety disorder, unspecified; E61.1 Iron deficiency; B95.2 Enterococcus as the cause of diseases classified elsewhere; R50.2 Drug induced fever; Z66 Do not resuscitate; Z85.828 Personal history of other malignant neoplasm of skin

== ENCOUNTER 2016-11-27 21:06 | Inpatient (IN) | payer MEDICARE, OTHER ==
[~2016-11-27] VITALS: Ht 154.9 cm; Wt 99.0 kg
[~2016-11-27 21:06] MED LIST changes: +AMBIEN DPS5 MG PO; +BENADRYL25 MG PO; +CARDIZEM CD DP120 MG PO; +COLACE-DPS100 MG PO; +CORDARONE DPS200 MG PO; +DIFLUCAN DPS150 MG PO; +DILAUDID2 MG PO; +DURAGESIC DPS100 MCG TD; +LASIX DPS80 MG PO; +MAG-OX400 MG PO; +MOI-STIR120 ML PO; +NILSTAT SUSP DPS PO; +REGLAN DPS5 MG PO; +ROXANOL 20MG20 MG/ML PO; +SENOKOT S1 TAB PO; +SLOW-MAG71.5 MG PO
--- NOTE | 2016-12-02 06:50 | HP ---
ADMIT: 11/28/2016 RM/LOC: 305 [facility] MR#: [id number] 2620 [facility] [address] [place] [phone] JAMES TELLEZ [address] [place] [address] History and Physical SEX: F AGE: 76 : 1940 DATE OF SERVICE: CHIEF COMPLAINT: Confusion, hyponatremia, and rash. HISTORY OF PRESENT ILLNESS: This is a 76-year-old female with history of nasopharyngeal cancer, status post rhinectomy 10 years ago. In the last several months, has been diagnosed with a non-small cell lung cancer. She had a postobstructive pneumonia initially, and had been in the hospital for a prolonged time. She was discharged about a week ago to go to her intermediate in [place]. Apparently up there, she had worsening trouble with being agitated. She was taken over to the [facility]. She was found to have her hyponatremia had recurred. She also had a diffuse rash throughout her whole body. She was given IV Benadryl up there which did seem to lessen the rash quite a bit. However, she has been much more confused over the last couple days and usually she is conversant and lucid and has not been such here recently. She can give me no history. I do discuss with the daughter and family member appears to be a . PAST MEDICAL HISTORY: Past history reviewed from her last H and P, just a month ago. This is reviewed and unchanged. MEDICATIONS: Are different. See the admission medication list. REVIEW OF SYSTEMS: Other complete review of systems are really unobtainable. PHYSICAL EXAMINATION: VITAL SIGNS: Temperature 97.5, pulse 67, respirations 16, blood pressure 97/31, oxygen saturation 95% on 3 L of oxygen per nasal cannula in the mouth. GENERAL: This is an ill-appearing, 76-year-old female. She does moan with some physical stimulation. She would not open her eyes. HEENT: She has a bandage over her nose, and her personal preference is to have it not removed, so I will not do that. Head is normocephalic and atraumatic. Otherwise, she would not open her eyes for me. Throat appears clear. NECK: Trachea is midline. Supple. Thyroid not palpable. HEART: Irregularly irregular. LUNGS: Diminished bilaterally. ABDOMEN. Soft. Some irritation to the patient when I push on her abdomen. No guarding or tenseness. EXTREMITIES: Lower extremities have diffuse 3+ edema throughout. She seems to move all extremities equally bilaterally NEURO: Exam could not be obtained because the patient's mental status. LABORATORY RESULTS: Lactic acid was 2.0. White count 39, hemoglobin 8.7, and platelets of 283. CMP shows a sodium 122, potassium 3.7, chloride 82, creatinine 1.7, BUN 50, albumin is 1.4, calcium corrected is 10.8, magnesium 3.3, procalcitonin is 1.85. Urine sodium 15. Urine osmolality 248. Chest x- ray shows worsening of pulmonary opacities, edema versus infection. ADMIT: 11/28/2016 RM/LOC: 305 [facility] MR#: [id number] [address] [address] JO TELLEZON [address] [address] History and Physical SEX: F AGE: 76 : 1940 ASSESSMENT: 1. Confusion. 2. Hyponatremia. 3. Metastatic non-small cell lung cancer. 4. Severe malnutrition. 5. Chronic kidney disease with acute kidney injury. 6. Hypercalcemia. PLAN: I will consult supportive care. There is some question about whether she wants to continue with this aggressive nature of care or not. I spelled it out in black and white terms for the family members present. If we do all we can for her, she will need a feeding tube to get better nutrition, and if we wish on the opposite side to just keep her comfortable, then we will need to pursue those measures. In the meantime, the family wants to do is see if we can correct her sodium, we could do that. Hopefully, she will be more lucid and make decisions on her own. I discussed this even if she does seem to make decisions in this severity of illness, her decisions may not be ones that she would ordinarily make in her right mind, nonetheless that will be our plan for now. She is DNR/DNI in the meantime. Ladarius Koehler MD/ jacinto JOB #: [id number] CC: Ladarius Koehler, Attending Physician Rambo Marx, Family Physician
--- NOTE | 2016-12-02 14:49 | CO ---
ADMIT: 11/28/2016 RM/LOC: 305 [facility] MR#: [id number] 2620 [facility] [address] [place] [phone] ANGELLA TELLEZ [address] [place] [address] Consultation SEX: F AGE: 76 : 1940 DATE OF CONSULTATION: 11/28/2016 ATTENDING PHYSICIAN: Ladarius Koehler CONSULTING PHYSICIAN: Aggie Anthony APRN TIME IN: 0935 hours. TIME OUT: 1015 hours. REASON FOR CONSULTATION: Supportive care consultation was requested by Dr. Koehler for discussion of goals for care. HISTORY OF PRESENT ILLNESS: Angella is a very pleasant, 76-year-old, female, who recently had a very long hospital stay here at [facility] from October 27 to November 24, 2016. 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 As mentioned, she did have a long and complicated hospital stay earlier this month. I followed the patient during that hospital for goals of care. Please see my dictation from October 30, 2016, for full details of that consultation. In summary, the patient was followed with Oncology and started immunotherapy prior to discharge. We did have extensive discussions regarding goals and the patient's goal was to try the immunotherapy. During her stay, she also had issues with ongoing pain. However, this was well-controlled at the time she discharged and also she had issues with acute kidney injury and atrial fibrillation. She [facility]. Family reports that things have not gone well since then. She had increasing pain needs and her fentanyl patch dose was adjusted. Family feels that she received too much medication and then became more lethargic. Additionally, she developed rash with weakness. Due to her decline, she was readmitted to the hospital last evening. She was found to have hyponatremia with a sodium of 122 as well as a generalized rash with pneumonia and urinary tract infection that is growing Letitia. Due to her complexities, supportive care consultation was requested to discuss goals for care. In terms of advanced directives, the patient is a do not resuscitate/do not intubate status. The patient's next of kin medical decision maker is her , Wes Tellez whose phone #[phone] and [phone]. The patient does not have a living will or POLST form currently on file. Symptomatically, the patient is complaining of intermittent pain. She was actually yelling out when I first arrived to the unit to examine her. She then rested more comfortably. Overall, she appears weak and debilitated. Please see my prior dictation for the patient's past medical, surgical, social, and family history. FUNCTIONAL STATUS: Currently, the patient is bed-bound. She is total care. ADMIT: 11/28/2016 RM/LOC: 305 [facility] MR#: [id number] [address] [place] [phone] ANGELLA TELLEZ [address] [place] [address] Consultation SEX: F AGE: 76 : 1940 She is taking in minimal intake. She is lethargic. Her current palliative performance scale is 20%. ALLERGIES: THE PATIENT IS ALLERGIC TO ESTROGEN. CURRENT MEDICATIONS: Please see the patient's MAR for specific routes and dosages. Her current medications are as follows: 1. Dilaudid. 2. Moisture spray. 3. Benadryl. 4. Nilstat solution. 5. Lasix. 6. Cardizem. 7. Cordarone. 8. DuoNeb. 9. Nitro drip. 10.Colace. 11.Maalox. 12.Tylenol. 13.Nitrostat. 14.Vibramycin. REVIEW OF SYSTEMS: A 10-point review of systems was attempted. However, the patient is lethargic and unable to participate in the exam. PHYSICAL EXAMINATION: GENERAL: The patient is examined in the bed. She is lethargic. VITAL SIGNS: Temperature 97.5, pulse 67, respirations 16, blood pressure 97/31, oxygen 95% on 3 L per nasal cannula. HEENT. Head is normocephalic. Pupils are not examined as she is asleep. Oral mucosa pink and dry. She does have a dressing over the area where her nose was. NECK: Supple. RESPIRATORY: Respirations are equal and nonlabored at rest. LUNGS: Diminished. CARDIOVASCULAR: Rate rhythm regular without murmurs, rubs, or gallops. She does have generalized 2 to 3+ edema noted. GASTROINTESTINAL: Soft, nontender. Bowel sounds are hypoactive. MUSCULOSKELETAL: Generalized weakness. INTEGUMENTARY: She does have a generalized rash noted. NEUROLOGIC: She is lethargic. She will not answer questions for me. She will not follow commands. PSYCHIATRIC: Calm and cooperative. No agitation noted during my exam. DIAGNOSTIC DATA: Sodium 122, potassium 3.7, BUN 50, creatinine 1.7, total protein 5.2, albumin 1.4. WBCs 39.2, hemoglobin 8.7, hematocrit 27.8, and platelets are 284. ADMIT: 11/28/2016 RM/LOC: 305 [facility] MR#: [id number] [address] [place] [phone] ANGELLA TELLEZ [address] [place] [address] Consultation SEX: F AGE: 76 : 1940 IMPRESSION: 1. Physical debility. 2. Fatigue. 3. Lethargy. 4. Malaise. 5. Generalized pain. 6. Anasarca. 7. Severe protein-calorie malnutrition. 8. Difficulty coping. 9. Non-small cell lung cancer. 10.Rash. 11.Hyponatremia. 12.Urinary tract infection, growing Letitia. 13.Pneumonia. 14.Anemia. 15.Acute kidney injury. 16.Palliative care. 17.The patient is a DNR/DNI. PLAN OF TREATMENT: At the time of assessment, the patient is too lethargic to participate in medical decision making. I was able to meet with the patient, the patient's , and daughter at the bedside. We reviewed the patient's overall status and goals for the time ahead. They do describe the progressive decline since discharging from the hospital earlier this week. I am very clear with them that we may be at the point where ongoing aggressive care is something that she cannot tolerate. They verbalized understanding of this. We did discuss the concept of comfort care and also the hospice philosophy in the event that the patient and her family decided that they want to focus more on comfort in the time ahead. Much support is given to them as they are obviously and understandably sad regarding the patient's status. They understand that we may be at point where hospice fits the patient's goals. However, they are hopeful that she can participate in this discussion to make ADMIT: 11/28/2016 RM/LOC: 305 [facility] MR#: [id number] [address] [place] [phone] ANGELLA TELLEZ [address] [place] [address] Consultation SEX: F AGE: 76 : 1940 a decision. I am not sure that she will be able to do this. I guess we will have to see how her mentation is here in the time ahead. At this point, they direct to continue current care, but are very clear that she is a do not resuscitate/do not intubate status. They agree to ongoing discussions in the time ahead. I will try to come back this afternoon to further discuss things with family and check in on the patient. We would like to thank Dr. Koehler for the invitation to participate in this patient's care. Total consultation time was 40 minutes from 0935 hours to 1015 hours with 25 minutes from 0940 hours to 1005 hours spent [id number] with the patient and family discussing goals for care and providing counseling and support. We will continue to follow along. Aggie Anthony APRN/ jacinto JOB #: [id number] CC: Ladarius Koehler, Attending Physician Rambo Marx, Family Physician
--- NOTE | 2016-12-03 07:51 | ER ---
ADMIT: 11/28/2016 RM/LOC: 305 [facility] MR#: [id number] 2620 [facility] [address] [place], [place] [phone] JAMES TELLEZ [address] [place] [address] Emergency Room Report SEX: F AGE: 76 : 1940 DATE: 11/27/2016 CHIEF COMPLAINT: Delirium and low sodium. HISTORY OF PRESENT ILLNESS: The patient is a 76-year-old female with history of nasopharyngeal cancer, status post rhinectomy a decade ago. In the last several months, she has been recently diagnosed with non-small cell lung cancer and had postobstructive pneumonia when her lung cancer was found. She has additionally had a bout of AFib, with a prolonged hospitalization over the past month and was discharged approximately a week ago [place] [facility] [place]. The patient has had been having some worsening problems with agitation and was taken to the [place] [facility] and was found to have worsening hyponatremia and transferred to our facility. The patient is extremely poor historian at this time and just states that she feels like she is having pain, but cannot specify where it is at. She is here with her daughters, who are able to provide a lot of the recent history. REVIEW OF SYSTEMS: Unable to obtain an accurate review of systems. PAST MEDICAL HISTORY: Significant for history of nasopharyngeal cancer, status post rhinectomy; stage IV lung cancer; AFib; pressure ulcers; postobstructive pneumonia; anemia; spinal stenosis with chronic back pain. MEDICATIONS: See nurse's note. ALLERGIES: TO PENICILLIN, POSSIBLY LEVAQUIN. SOCIAL HISTORY: Currently living [place] [facility] [place], [place]. PHYSICAL EXAMINATION: VITAL SIGNS: Blood pressure 120/47, pulse 104, respirations 16, temperature 97.7, saturations 98% on 3 L nasal cannula. GENERAL: The patient is alert, she does appear agitated. HEENT: Head, I see no acute trauma, but she does have rhinectomy with no nasal prosthesis present. Her dressing was removed, and she did have a greenish foul-smelling discharge noted in her sinus cavity. Airway is patent. HEART: Tachycardic. LUNGS: Show she has decreased breath sounds at bilateral bases. ABDOMEN: Obese, soft. CHEST: The patient has an erythematous rash to her chest extending onto her bilateral arms, which is apparently not new for her. EXTREMITIES: She has bilateral pedal edema, 3+ in lower extremities. LABORATORY DATA AND IMAGING: White count of 39.2, hemoglobin of 8.7, platelets 284. Sodium 122, potassium 3.7, carbon dioxide 29, BUN 50, creatinine 1.7, magnesium is 3.3, procalcitonin 1.85, lactic acid 2. Chest x- ray shows nothing acute. EMERGENCY DEPARTMENT COURSE: The patient was quite agitated when she got here. Daughter states that she does not tolerate benzodiazepines, so I went ADMIT: 11/28/2016 RM/LOC: 305 [facility] MR#: [id number] [address] [phone] JO TELLEZFELICITY Dailey [address] [place] [address] Emergency Room Report SEX: F AGE: 76 : 1940 to give the patient Ambien and some Dilaudid and did significantly improve her agitation. She had to get re-dosed with Dilaudid and Ambien approximately 3- 1/2 hours after her first dose while she was still in the ER. At this point, I do not believe the patient is safe to go home and we will be admitting her to [facility] and I spoke to Dr. Koehler. She did get a dose of IV Levaquin in the Emergency Department and did not appear to have any adverse reaction to Levaquin. She did have 1 episode in the Emergency Department where her blood pressure dropped to 90s over 40s, but otherwise her blood pressure was not an issue while she was in the ER. The patient is admitted in serious condition with; DIAGNOSES: 1. Hyponatremia. 2. Stage IV lung cancer. 3. Agitation. 4. Delirium. Dev Souza MD/ jacinto JOB #: [id number] CC: Ladarius Koehler MD, Attending Physician Rambo Marx MD, Family Physician
--- NOTE | 2016-12-21 08:54 | DS ---
ADMIT: 11/28/2016 RM/LOC: 305 [facility] MR#: [id number] [address]20 [facility] [address] [place] [phone] JAMES TELLEZ [address] [place] [address] General Discharge Summary SEX: F AGE: 76 : 1940 ADMISSION DATE: 11/28/2016 DISCHARGE DATE: 11/30/2016 Date of discharge/, 11/30/2016. FINAL DIAGNOSES: 1. Confusion. 2. Hyponatremia. 3. Rash. 4. Recent pneumonia related to likely Gram-negative rods. 5. Metastatic non-small cell lung cancer. 6. Severe malnutrition. 7. Chronic kidney disease with acute kidney injury. 8. Hypercalcemia. REASON FOR ADMISSION: This is a 76-year-old female, who presented with confusion and hyponatremia and a rash. She had recently had a postobstructive pneumonia, was in the hospital for a long time, was discharged to senior care and gradually got worse there, so she has presented back down to the emergency room. HOSPITAL COURSE: The patient was admitted. Supportive Care was consulted as it was clear that the patient's family wanted some more discussions regarding keep her comfortable as opposed to aggressive measures of care. They did reiterate she was DNR/DNI from the very beginning. She needed some pressors in the form of Levophed because of some hyponatremia. She also needed a PICC line for IV access. Wound Care needed to see her because of pressure wounds, and she also had some phenylephrine started. She was getting more hypoxic and comfort measures wished by the family. Ultimately, the patient at 2244 hours on 11/30/2016, with family at bedside. Ladarius Koehler MD/ jacinto JOB #: [id number] CC: Ladarius Koehler MD, Attending Physician Rambo Marx MD, Family Physician
== END 2016-11-30 22:44 | disposition expired | DRG 871 ==
LOC: ER 21:06 → 3ICU 11-28 01:40
PROVIDERS: ADMIT Internal Medicine
PROC: 02HV33Z Insertion of Infusion Device into Superior Vena Cava, Percutaneous Approach (ICD-10-PCS; principal; 2016-11-28)
DX: A41.9 Sepsis, unspecified organism (principal); J15.6 Pneumonia due to other Gram-negative bacteria; E43 Unspecified severe protein-calorie malnutrition; N17.9 Acute kidney failure, unspecified; L89.312 Pressure ulcer of right buttock, stage 2; L89.153 Pressure ulcer of sacral region, stage 3; C34.90 Malignant neoplasm of unspecified part of unspecified bronchus or lung; E87.1 Hypo-osmolality and hyponatremia; B37.49 Other urogenital candidiasis; R65.20 Severe sepsis without septic shock; I48.91 Unspecified atrial fibrillation; E83.52 Hypercalcemia; D63.8 Anemia in other chronic diseases classified elsewhere; R41.0 Disorientation, unspecified; M48.00 Spinal stenosis, site unspecified; R21 Rash and other nonspecific skin eruption; N18.9 Chronic kidney disease, unspecified; Z66 Do not resuscitate; Z85.818 Personal history of malignant neoplasm of other sites of lip, oral cavity, and pharynx; Z90.09 Acquired absence of other part of head and neck